=== PATIENT | male | born 1995 | race Two or more races ===

== ENCOUNTER 2017-05-05 13:44 | Outpatient (CLI) | payer MEDICAID ==
[2017-05-05 19:46] LABS: BASOPHILS # (AUTO) 0.1 10^3/uL (0.0-0.1); BASOPHILS % (AUTO) 1.2 %; EOSINOPHILS # (AUTO) 0.1 10^3/uL (0.0-0.7); EOSINOPHILS % (AUTO) 2.5 %; HCT - HEMATOCRIT 43.6 % (42.0-52.0); HGB - HEMOGLOBIN 14.7 g/dL (14.0-18.0); LYMPHOCYTES # (AUTO) 1.1 10^3/uL (1.5-3.5); LYMPHOCYTES % (AUTO) 24.7 %; MEAN CORPUSCULAR HEMOGLOBIN 29.5 pg (27.0-31.0); MEAN CORPUSCULAR HGB CONC 33.6 g/dL (32.0-36.0); MEAN CORPUSCULAR VOLUME 87.6 fL (80.0-94.0); MEAN PLATELET VOLUME 8.6 fL (7.4-11.4); MONOCYTES # (AUTO) 0.7 10^3/uL (0.0-1.0); MONOCYTES % (AUTO) 14.6 %; NEUTROPHILS # (AUTO) 2.6 10^3/uL (1.5-6.6); NUCLEATED RED BLOOD CELLS AUTO 0.1 /100WBC; RED BLOOD COUNT 4.98 10^6/uL (4.70-6.10); RED CELL DISTRIBUTION WIDTH 13.5 % (12.0-15.0); UNCORRECTED WHITE BLOOD COUNT 4.6 x10^3/uL; WHITE BLOOD COUNT 4.6 x10^3/uL (4.8-10.8)
[2017-05-05 20:19] LABS: ALBUMIN/GLOBULIN RATIO 1.7 (1.0-2.2); CALCIUM 9.4 mg/dL (8.5-10.3); CREATININE 0.8 mg/dL (0.6-1.2); POTASSIUM 3.8 mmol/L (3.5-5.0); TOTAL PROTEIN 6.8 g/dL (6.7-8.2)
== END 2017-05-05 13:45 ==
LOC: LAB.N 13:44
PROVIDERS: ATTEND Nurse Practitioner Gerontology
DX: Z13.9 Encounter for screening, unspecified (principal); F32.9 Major depressive disorder, single episode, unspecified
CPT/HCPCS: 36415; 80053; 84403; 85025

== ENCOUNTER 2017-10-22 10:02 | Outpatient (CLI) | payer MEDICAID ==
[2017-10-22 14:15] LABS: BASOPHILS % (AUTO) 0.9 %; EOSINOPHILS # (AUTO) 0.1 10^3/uL (0.0-0.7); EOSINOPHILS % (AUTO) 3.1 %; HCT - HEMATOCRIT 39.3 % (42.0-52.0); HGB - HEMOGLOBIN 13.8 g/dL (14.0-18.0); LYMPHOCYTES # (AUTO) 1.2 10^3/uL (1.5-3.5); LYMPHOCYTES % (AUTO) 24.4 %; MEAN CORPUSCULAR HEMOGLOBIN 30.2 pg (27.0-31.0); MEAN CORPUSCULAR HGB CONC 35.1 g/dL (32.0-36.0); MEAN PLATELET VOLUME 8.4 fL (7.4-11.4); MONOCYTES # (AUTO) 0.7 10^3/uL (0.0-1.0); MONOCYTES % (AUTO) 14.4 %; NEUTROPHILS # (AUTO) 2.7 10^3/uL (1.5-6.6); NEUTROPHILS % (AUTO) 57.2 %; RED BLOOD COUNT 4.57 10^6/uL (4.70-6.10); RED CELL DISTRIBUTION WIDTH 13.7 % (12.0-15.0); UNCORRECTED WHITE BLOOD COUNT 4.8 x10^3/uL; WHITE BLOOD COUNT 4.8 x10^3/uL (4.8-10.8)
== END 2017-10-22 10:03 | disposition home or self-care (01) ==
LOC: LAB.N 10:02
PROVIDERS: ATTEND Nurse Practitioner Gerontology
DX: K62.5 Hemorrhage of anus and rectum (principal)
CPT/HCPCS: 36415; 85025

== ENCOUNTER 2018-01-11 06:50 | Day surgery (SDC) | payer MEDICAID ==
[2018-01-11] MEDS ORDERED: PROPOFOL 200 MG/20 ML VIAL IVP ONE (06:51)
[2018-01-11] MEDS ORDERED: LACTATED RINGERS 1,000 ML IV ONE (07:32)
[2018-01-11 09:13] VITALS: BP 105/67
== END 2018-01-11 06:51 | disposition home or self-care (01) ==
LOC: SDS 06:50
PROVIDERS: ATTEND Surgery
PROC: 0DBP8ZX Excision of Rectum, Via Natural or Artificial Opening Endoscopic, Diagnostic (ICD-10-PCS; 2018-01-11)
PROC: 0DBK8ZX Excision of Ascending Colon, Via Natural or Artificial Opening Endoscopic, Diagnostic (ICD-10-PCS; principal; 2018-01-11 08:15)
DX: K62.5 Hemorrhage of anus and rectum (principal); K64.8 Other hemorrhoids; K52.89 Other specified noninfective gastroenteritis and colitis; F90.9 Attention-deficit hyperactivity disorder, unspecified type; F84.0 Autistic disorder
CPT/HCPCS: 45380; J7120

== ENCOUNTER 2018-04-21 16:03 | Inpatient (IN) | payer MEDICAID ==
--- NOTE | 2018-04-21 16:25 | ED Physician Documentation ---
History of Present Illness - Stated complaint Stated Complaint: MALE /RECTAL BLEEDING - Chief complaint Chief Complaint: General - History obtained from History obtained from: Patient - History of Present Illness Timing: Other (22-year-old gentleman with recent diagnosis of ulcerative colitis by colonoscopy. He was on what sounds like a mesalamine type drug and it was supposed to be 4 times a day but he really only takes it once a day. For the last 2-3 weeks he has had intermittently heavy rectal bleeding without significant abdominal pain or nausea. He is starting to feel weak and dizzy.) Review of Systems Ten Systems: 10 systems reviewed and negative Constitutional: denies: Fever, Chills, Fatigue GI: reports: Bloody / black stool. denies: Abdominal Pain, Nausea, Vomiting, Diarrhea : denies: Dysuria PD PAST MEDICAL HISTORY - Past Medical History Cardiovascular: None Endocrine/Autoimmune: None Psych: Other - Past Surgical History General: Other - Present Medications Home Medications: Ambulatory Orders Medication Instructions Recorded Confirmed Amphetamine Sulfate [Evekeo] 30 mg PO DAILY 01/11/18 04/21/18 Clonidine HCl [Catapres] 0.2 mg PO DAILY 01/11/18 04/21/18 Fluoxetine HCl [Prozac] 20 mg PO DAILY 01/11/18 04/21/18 risperiDONE [Risperdal] 1 mg PO DAILY 01/11/18 04/21/18 Mesalamine [Apriso] 0.375 gm PO DAILY 04/21/18 04/21/18 - Allergies Allergies/Adverse Reactions: Allergies Allergy/AdvReac Type Severity Reaction Status Date / Time No Known Drug Allergies Allergy Verified 01/11/18 07:33 - Family History Family history: reports: Non contributory PD ED PE NORMAL - Vitals Vital signs reviewed: Yes - General General: Alert and oriented X 3, No acute distress - HEENT HEENT: PERRL, EOMI - Neck Neck: Supple, no meningeal sign, No bony TTP - Cardiac Cardiac: No murmur, Other (Tachycardic) - Respiratory Respiratory: No respiratory distress, Clear bilaterally - Abdomen Abdomen: Soft, Non tender - Rectal Rectal: Deferred (But he had just had a bowel movements and in the there is brown stool mixed with a significant amount of blood.) - Back Back: No CVA TTP, No spinal TTP - Derm Derm: Normal color, Warm and dry - Extremities Extremities: No edema, No calf tenderness / cord - Neuro Neuro: Alert and oriented X 3, Normal speech Results - Vitals Vitals: Vital Signs - 24 hr 04/21/18 16:05 Temperature 36.7 C Heart Rate 118 H Respiratory 16 Rate Blood Pressure 103/75 O2 Saturation 96 Oxygen O2 Source Room air - Labs Labs: Laboratory Tests 04/21/18 04/21/18 16:30 16:30 WBC 10.5 RBC 3.33 L Hgb 9.6 L Hct 28.7 L MCV 86.2 MCH 28.8 MCHC 33.4 RDW 14.3 Plt Count 387 MPV 6.9 L Neut # (Auto) 5.4 Lymph # (Auto) 1.4 L [place] # (Auto) 2.1 H Eos # (Auto) 1.4 H Baso # (Auto) 0.1 Absolute Nucleated RBC 0.02 Nucleated RBC % 0.1 Sodium 134 L Potassium 3.8 Chloride 100 L Carbon Dioxide 29 Anion Gap 5.0 L BUN 8 Creatinine 1.0 Estimated GFR (MDRD) 93 Glucose 91 Calcium 8.3 L Total Bilirubin 0.6 AST 27 ALT 22 Alkaline Phosphatase 49 Total Protein 5.8 L Albumin 2.4 L Globulin 3.4 Albumin/Globulin Ratio 0.7 L Lipase 20 L PD MEDICAL DECISION MAKING - ED course ED course: As a young man with known ulcerative colitis who has significant rectal bleeding and hemoglobin of 9, it was high 13 a few months ago. Call to the surgeon for likely observation at 5 PM. - Sepsis Event Vital Signs: Vital Signs - 24 hr 04/21/18 16:05 Temperature 36.7 C Heart Rate 118 H Respiratory 16 Rate Blood Pressure 103/75 O2 Saturation 96 Oxygen O2 Source Room air Departure - Departure Disposition: ED Place in Observation Clinical Impression: Lower GI bleed Ulcerative colitis Qualifiers: Ulcerative colitis location: unspecified ulcerative colitis location Digestive disease complication type: with rectal bleeding Qualified Code(s): K51.911 - Ulcerative colitis, unspecified with rectal bleeding Condition: Stable
[2018-04-21 16:49] LABS: ALBUMIN 2.4 g/dL (3.2-5.5); ALBUMIN/GLOBULIN RATIO 0.7 (1.0-2.2); BILIRUBIN,TOTAL 0.6 mg/dL (0.2-1.0); CALCIUM 8.3 mg/dL (8.5-10.3); TOTAL PROTEIN 5.8 g/dL (6.7-8.2)
[2018-04-21 16:52] LABS: BASOPHILS # (AUTO) 0.1 10^3/uL (0.0-0.1); BASOPHILS % (AUTO) 0.9 %; EOSINOPHILS # (AUTO) 1.4 10^3/uL (0.0-0.7); EOSINOPHILS % (AUTO) 13.7 %; HGB - HEMOGLOBIN 9.6 g/dL (14.0-18.0); LYMPHOCYTES # (AUTO) 1.4 10^3/uL (1.5-3.5); LYMPHOCYTES % (AUTO) 13.7 %; MEAN CORPUSCULAR HEMOGLOBIN 28.8 pg (27.0-31.0); MEAN CORPUSCULAR HGB CONC 33.4 g/dL (32.0-36.0); MEAN CORPUSCULAR VOLUME 86.2 fL (80.0-94.0); MEAN PLATELET VOLUME 6.9 fL (7.4-11.4); MONOCYTES # (AUTO) 2.1 10^3/uL (0.0-1.0); MONOCYTES % (AUTO) 20.1 %; NEUTROPHILS # (AUTO) 5.4 10^3/uL (1.5-6.6); NEUTROPHILS % (AUTO) 51.6 %; PLT - PLATELET COUNT 387 10^3/uL (130-450); RED BLOOD COUNT 3.33 10^6/uL (4.70-6.10); RED CELL DISTRIBUTION WIDTH 14.3 % (12.0-15.0); WHITE BLOOD COUNT 10.5 x10^3/uL (4.8-10.8)
[2018-04-21] MEDS ORDERED: SODIUM CHLORIDE 0.9% 1,000 ML IV ONE ×2 (17:05→17:06)
[2018-04-21] MEDS ORDERED: HYDROmorphone 0.5 MG/0.5 ML SYRINGE IVP PRN (17:41)
[2018-04-21] MEDS ORDERED: ONDANSETRON 4 MG/2 ML VIAL IVP PRN (17:44)
[2018-04-21] MEDS ORDERED: DEXTROAMPHETAMINE PO SCH (17:45)
[2018-04-21] MEDS ORDERED: AMPHETAMINE PO SCH (17:45)
[2018-04-21] MEDS: SODIUM CHLORIDE FLUSH 0.9% 10 ML SYRINGE IVP PRN ×2 (19:18→20:09)
[2018-04-21] MEDS: HYDROCORTISONE SUCCINATE 100 MG/2 ML VIAL IVP SCH (20:06)
[2018-04-21] MEDS: SODIUM CHLORIDE 0.9% 1,000 ML IV SCH (20:09)
[2018-04-21] MEDS ORDERED: cloNIDine 0.1 MG TABLET PO SCH ×2 (21:00→21:11)
[2018-04-21] MEDS: risperiDONE 1 MG TABLET PO SCH (21:15)
[2018-04-22] MEDS: SODIUM CHLORIDE FLUSH 0.9% 10 ML SYRINGE IVP SCH ×3 (01:35→17:52)
[2018-04-22] MEDS: HYDROCORTISONE SUCCINATE 100 MG/2 ML VIAL IVP SCH ×3 (03:26→17:52)
[2018-04-22] MEDS: SODIUM CHLORIDE FLUSH 0.9% 10 ML SYRINGE IVP PRN (03:27)
[2018-04-22] MEDS: SODIUM CHLORIDE 0.9% 1,000 ML IV SCH ×3 (03:27→20:48)
[2018-04-22 05:37] LABS: BASOPHILS # (AUTO) 0.1 10^3/uL (0.0-0.1); BASOPHILS % (AUTO) 0.7 %; EOSINOPHILS # (AUTO) 0.2 10^3/uL (0.0-0.7); EOSINOPHILS % (AUTO) 2.3 %; HGB - HEMOGLOBIN 8.2 g/dL (14.0-18.0); LYMPHOCYTES # (AUTO) 0.8 10^3/uL (1.5-3.5); LYMPHOCYTES % (AUTO) 9.4 %; MEAN CORPUSCULAR HEMOGLOBIN 28.6 pg (27.0-31.0); MEAN CORPUSCULAR VOLUME 86.7 fL (80.0-94.0); MEAN PLATELET VOLUME 6.7 fL (7.4-11.4); MONOCYTES # (AUTO) 1.1 10^3/uL (0.0-1.0); MONOCYTES % (AUTO) 12.3 %; NEUTROPHILS # (AUTO) 6.7 10^3/uL (1.5-6.6); NEUTROPHILS % (AUTO) 75.3 %; PLT - PLATELET COUNT 327 10^3/uL (130-450); RED BLOOD COUNT 2.87 10^6/uL (4.70-6.10); RED CELL DISTRIBUTION WIDTH 14.4 % (12.0-15.0); WHITE BLOOD COUNT 8.9 x10^3/uL (4.8-10.8)
--- NOTE | 2018-04-22 08:51 | PROVIDER PROGRESS NOTE ---
Subjective - General Admit Date: 04/21/18 - Review of Systems Gastrointestinal: positive: Hematochezia, Other (no c/o abdominal pain.) Objective - Patient Data Vital Signs: Vital Signs x48h Temp Pulse Resp BP Pulse Ox 04/22/18 08:13 37.3 C 96 18 112/60 97 04/22/18 05:00 36.9 C 89 20 108/49 L 96 Weight: Weight 04/20/18 04/21/18 04/22/18 23:59 23:59 23:59 Weight (kg) 97.5 kg Intake & Output: Intake and Output Totals x24h 04/20/18 04/21/18 04/22/18 23:59 23:59 23:59 Intake Total 1810 200 Output Total 1 Balance 1810 199 - Lab Results Lab Results: 04/22/18 05:15 04/21/18 16:30 Other Lab Results: Lab Results x24hrs 04/22/18 Range/Units 05:15 WBC 8.9 (4.8-10.8) x10^3/uL RBC 2.87 L (4.70-6.10) 10^6/uL Hgb 8.2 L (14.0-18.0) g/dL Hct 24.9 L (42.0-52.0) % MCV 86.7 (80.0-94.0) fL MCH 28.6 (27.0-31.0) pg MCHC 33.0 (32.0-36.0) g/dL RDW 14.4 (12.0-15.0) % Plt Count 327 (130-450) 10^3/uL MPV 6.7 L (7.4-11.4) fL Neut # (Auto) 6.7 H (1.5-6.6) 10^3/uL Lymph # (Auto) 0.8 L (1.5-3.5) 10^3/uL [place] # (Auto) 1.1 H (0.0-1.0) 10^3/uL Eos # (Auto) 0.2 (0.0-0.7) 10^3/uL Baso # (Auto) 0.1 (0.0-0.1) 10^3/uL Absolute Nucleated RBC 0.01 x10^3/uL Nucleated RBC % 0.1 /100WBC - Current Medications Current Medications: Current Medications Generic Name Dose Route Start Last Admin Trade Name Freq PRN Reason Stop Dose Admin Hydrocortisone Sodium Succinate 100 mg 04/21/18 18:00 04/22/18 03:26 Solu-Cortef IVP 100 mg Q8H DEBRA Administration Sodium Chloride 1,000 mls @ 125 mls/hr 04/21/18 18:00 04/22/18 03:27 Normal Saline 0.9% IV 125 mls/hr .Q8H DEBRA Administration Risperidone 1 mg 04/21/18 21:00 04/21/18 21:15 Risperdal PO 1 mg QPM DEBRA Administration Sodium Chloride 10 ml 04/22/18 01:00 04/22/18 01:35 Normal Saline Flush 0.9% IVP Not Given 0100,0900,1700 DEBRA Sodium Chloride 10 ml 04/21/18 17:41 04/22/18 03:27 Normal Saline Flush 0.9% IVP 10 ml PRN PRN Administration NEEDED PER PROVIDER ORDERS - Physical Exam Abdomen: positive: Non-tender Impression/Plan - Problem List Problem List: Inflammatory bowel disease flareup. Currently on IV steroids. If improves overnight will d/c home on prednisone. Anemia secondary to ibs. HGB 8. asymptomatic. Start iron
[2018-04-22] MEDS: FERROUS SULFATE 325 MG TABLET PO SCH (09:35)
[2018-04-22] MEDS: FLUoxetine 10 MG CAPSULE PO SCH (09:36)
--- NOTE | 2018-04-22 11:28 | HISTORY & PHYSICAL EXAMINATION ---
DATE OF SERVICE: 04/21/2018 Physician: Luis Manuel Winters MD REASON FOR ADMISSION: Moderate inflammatory bowel disease. HISTORY OF PRESENT ILLNESS: The patient is a 22-year-old male who was diagnosed with inflammatory disease or inflammatory bowel disease a little over 2 months ago by colonoscopy. He had been placed on mesalamine, but his dose has been reduced. He now has progressive bloody diarrhea and abdominal pain for the last several weeks. He was seen in the emergency room and found to be anemic and dehydrated, having a hemoglobin of 10 and tachycardic at 120. PAST MEDICAL HISTORY 1. Inflammatory bowel disease. 2. ADHD. 3. Autism. 4. Depression. PAST SURGICAL HISTORY: Hernia repair. FAMILY HISTORY: Possible relative with celiac disease. MEDICATIONS 1. Risperdal. 2. Clonidine 3. Fluoxetine. 4. Adderall. HABITS: The patient denies any smoking, alcohol, or drug use. SOCIAL HISTORY: Patient lives with family. REVIEW OF SYSTEMS GASTROINTESTINAL: Abdominal pain and bloody diarrhea. CARDIOVASCULAR: Tachycardia. A 12-point review of systems was obtained, with pertinent positives discussed and all others being negative. PHYSICAL EXAMINATION VITAL SIGNS: Temperature is 36.7, heart rate 118, blood pressure 103/75. GENERAL: The patient is lying in bed. He does not appear to be in any distress at the current time just complaining of mild abdominal discomfort. EYES: Nonicteric. NECK: No lymphadenopathy. HEART: Mildly tachycardic. LUNGS: Clear. BACK: Nontender. ABDOMEN: Soft. Minimal tenderness. No hernias. No peritoneal signs. EXTREMITIES: No edema or cyanosis. NEUROLOGIC: The patient appears to be neurologically intact without any deficit. PSYCHOLOGICAL: The patient is coherent, cooperative, and appears to answer questions fully. DIAGNOSTIC DATA: Hemoglobin of 10, down from 14 in the past. Creatinine 0.1, sodium 134. ASSESSMENT 1. History of inflammatory bowel disease with the patient appearing to go into remission on mesalamine. His dose had been reduced with return of his symptoms. I recommend the patient be started on steroids, as he has moderate inflammatory bowel disease at the current time. I have discussed the risks and possible complications of steroids. He would be treated for several days on IV hydrocortisone and then switched to oral prednisone and mesalamine. 2. Attention deficit hyperactivity disorder, currently on medications. 3. Insomnia, on clonidine. PLAN 1. Admit. 2. Clear liquids. 3. Hydrocortisone 100 mg q.8 hours. 4. Follow hemoglobin and hematocrit. 5. IV hydration. TD: 04/22/2018 01:26
[2018-04-22] MEDS ORDERED: AMPHETAMINE PO SCH (16:00)
[2018-04-22] MEDS ORDERED: DEXTROAMPHETAMINE PO SCH (16:00)
[2018-04-22] MEDS: risperiDONE 1 MG TABLET PO SCH (22:19)
[2018-04-23] MEDS: HYDROCORTISONE SUCCINATE 100 MG/2 ML VIAL IVP SCH ×2 (01:38→10:40)
[2018-04-23] MEDS: SODIUM CHLORIDE FLUSH 0.9% 10 ML SYRINGE IVP SCH ×2 (01:42→08:50)
[2018-04-23] MEDS: SODIUM CHLORIDE 0.9% 1,000 ML IV SCH (04:35)
[2018-04-23 05:55] LABS: BASOPHILS % (AUTO) 0.4 %; EOSINOPHILS # (AUTO) 0.1 10^3/uL (0.0-0.7); EOSINOPHILS % (AUTO) 1.6 %; HGB - HEMOGLOBIN 8.1 g/dL (14.0-18.0); LYMPHOCYTES # (AUTO) 0.6 10^3/uL (1.5-3.5); LYMPHOCYTES % (AUTO) 6.7 %; MEAN CORPUSCULAR HEMOGLOBIN 28.3 pg (27.0-31.0); MEAN CORPUSCULAR HGB CONC 32.9 g/dL (32.0-36.0); MEAN CORPUSCULAR VOLUME 86.1 fL (80.0-94.0); MEAN PLATELET VOLUME 6.9 fL (7.4-11.4); MONOCYTES # (AUTO) 1.5 10^3/uL (0.0-1.0); MONOCYTES % (AUTO) 16.7 %; NEUTROPHILS # (AUTO) 6.8 10^3/uL (1.5-6.6); NEUTROPHILS % (AUTO) 74.6 %; PLT - PLATELET COUNT 366 10^3/uL (130-450); RED BLOOD COUNT 2.84 10^6/uL (4.70-6.10); RED CELL DISTRIBUTION WIDTH 14.6 % (12.0-15.0); WHITE BLOOD COUNT 9.1 x10^3/uL (4.8-10.8)
[2018-04-23 07:48] VITALS: BP 112/68
[2018-04-23] MEDS: FERROUS SULFATE 325 MG TABLET PO SCH (08:50)
[2018-04-23] MEDS: FLUoxetine 10 MG CAPSULE PO SCH (08:50)
[2018-04-23] MEDS ORDERED: DEXTROAMPHETAMINE PO SCH (10:00)
[2018-04-23] MEDS ORDERED: AMPHETAMINE PO SCH (10:00)
--- NOTE | 2018-04-23 10:56 | Discharge Plan ---
Discharge Plan Disposition: Home, Self Care Prescriptions: predniSONE [Prednisone] 40 mg PO DAILY #35 tablet Diet: Regular Activity Restrictions: No Restrictions Shower Restrictions: No Driving Restrictions: No Weight Bearing: Full Weight No Smoking: If you smoke, Please STOP! Call for help. Follow-up with: Jerri Villarreal ARNP [Primary Care Provider] - 2 Weeks Jose Alfredo Cohen MD [Provider Admit Priv/Credential] - 05/13/18
[2018-04-23] MEDS ORDERED: MESALAMINE 400 MG CAPSULE PO SCH (11:00)
--- NOTE | 2018-04-23 16:36 | DISCHARGE SUMMARY ---
Physician: Luis Manuel Winters MD DATE OF ADMISSION: 04/21/2018 DATE OF DISCHARGE: 04/23/2018 REASON FOR ADMISSION: Inflammatory bowel flareup. HISTORY OF PRESENT ILLNESS: Patient is a 22-year-old male who was diagnosed with inflammatory bowel 3 months prior. Now presents with a month history of continued bloody diarrhea after reducing the dose of mesalamine. PRINCIPAL DIAGNOSIS: Inflammatory bowel flareup. OTHER MEDICAL PROBLEMS 1. ADHD. 2. Autism. 3. Depression. HOSPITAL COURSE: Patient was admitted to the hospital. He was diagnosed with moderate to severe inflammatory bowel disease. He was having bloody diarrhea. His hemoglobin went down to 8 after hydration. He was started on IV steroids, hydrocortisone 100 mg q.8 hours. Within 24 hours, his bloody diarrhea had almost resolved, and 48 hours later was not having any more blood in the stool. However, he is still having some loose stools. He was placed on a regular diet, which he tolerated. He did not have any abdominal symptoms. He was then discharged home in stable condition. DISCHARGE PROGRAM 1. Patient will be on a prednisone taper 40 mg daily for a week, tapering down to 20 mg. 2. He will restart his mesalamine in a couple weeks and will need to be on maintenance therapy. 3. He is to resume his prehospitalization medications. 4. He will follow up with his primary care doctor in [address] Cohen in 3 weeks. 5. He is to come in if he should have any other issues occurring. TD: 04/23/2018 12:03 FROY
== END 2018-04-23 11:22 | disposition home or self-care (01) | DRG 386 ==
LOC: ED 16:03 → MS2 17:41 → OBSVTOIN 04-22 08:53
PROVIDERS: ADMIT Surgery; ATTEND Surgery
DX: K51.911 Ulcerative colitis, unspecified with rectal bleeding (principal); F84.0 Autistic disorder; F90.9 Attention-deficit hyperactivity disorder, unspecified type; F32.9 Major depressive disorder, single episode, unspecified; G47.00 Insomnia, unspecified; D64.9 Anemia, unspecified
CPT/HCPCS: 36415; 80053; 83690; 85025; 86850; 86900; 86901; 96360; 96361; 96374; 96376; 99283; 99284

== ENCOUNTER 2018-05-06 11:24 | Emergency (ER) | payer MEDICAID ==
[2018-05-06] MEDS ORDERED: SODIUM CHLORIDE 0.9% 1,000 ML IV ONE ×3 (11:59→12:44)
[2018-05-06 12:04] LABS: MEAN CORPUSCULAR HEMOGLOBIN 25.3 pg (27.0-31.0); MEAN CORPUSCULAR HGB CONC 32.2 g/dL (32.0-36.0); MEAN CORPUSCULAR VOLUME 78.7 fL (80.0-94.0); MEAN PLATELET VOLUME 6.6 fL (7.4-11.4); RED BLOOD COUNT 2.61 10^6/uL (4.70-6.10); RED CELL DISTRIBUTION WIDTH 17.3 % (12.0-15.0); WHITE BLOOD COUNT 10.9 x10^3/uL (4.8-10.8)
[2018-05-06 12:08] LABS: INR 1.2 (0.8-1.2)
[2018-05-06 12:08] LABS: HGB - HEMOGLOBIN 6.6 g/dL (14.0-18.0)
[2018-05-06 12:10] LABS: ALBUMIN 2.1 g/dL (3.2-5.5); ALBUMIN/GLOBULIN RATIO 0.7 (1.0-2.2); BILIRUBIN,TOTAL 0.5 mg/dL (0.2-1.0); CALCIUM 7.8 mg/dL (8.5-10.3); CREATININE 0.9 mg/dL (0.6-1.2); TOTAL PROTEIN 5.3 g/dL (6.7-8.2)
[2018-05-06] MEDS ORDERED: methylPREDNISolone SUCCINATE 125 MG/2 ML VIAL IVP STA (12:35)
--- NOTE | 2018-05-06 12:50 | ED Physician Documentation ---
PD HPI GI BLEED - Stated complaint Stated Complaint: MALE - Chief complaint Chief Complaint: Abd Pain - History obtained from History obtained from: Patient - History of Present Illness Timing - onset: How many weeks ago (several weeks) Timing - duration: Weeks Timing - details: Gradual onset Pain level max: 3 Pain level now: 2 Associated symptoms: BRBPR. No: Constipation Contributing factors: Other (ulcerative colitis) Improved by: Other (nothing) Worsened by: Other (nothing) Similar symptoms before: Diagnosis (ulcerative colitis) Recently seen: Not recently seen - Additional information Additional information: Patient is a 22-year-old male who has been diagnosed with ulcerative colitis after colonoscopy. Has had rectal bleeding intermittently for several weeks now and was recently admitted here. He has continued to feel very weak and tired and now feels very lightheaded when he stands up like he is going to pass out. Has never had a blood transfusion before. Does have an appointment with [facility] but not until June of this year. Review of Systems Ten Systems: 10 systems reviewed and negative Constitutional: denies: Fever, Chills Ears: denies: Ear pain Nose: denies: Rhinorrhea / runny nose, Congestion Throat: denies: Sore throat Cardiac: denies: Chest pain / pressure Respiratory: denies: Cough GI: denies: Nausea, Vomiting, Diarrhea Skin: denies: Rash Musculoskeletal: denies: Neck pain, Back pain Neurologic: denies: Headache PD PAST MEDICAL HISTORY - Past Medical History Cardiovascular: None Endocrine/Autoimmune: None GI: Ulcerative colitis Psych: Other - Past Surgical History Past Surgical History: Yes General: Other - Present Medications Home Medications: Ambulatory Orders Medication Instructions Recorded Confirmed Clonidine HCl [Catapres] 0.2 mg PO QPM 01/11/18 04/21/18 Fluoxetine HCl [Prozac] 20 mg PO DAILY 01/11/18 04/21/18 risperiDONE [Risperdal] 1 mg PO QPM 01/11/18 04/21/18 Dextroamphetamine/Amphetamine 20 mg PO .DAILY AT 4PM 04/21/18 04/21/18 [Dextroamp-Amphet ER 20 mg Cap] Dextroamphetamine/Amphetamine 30 mg PO .DAILY AT 10AM 04/21/18 04/21/18 [Dextroamp-Amphet ER 30 mg Cap] Mesalamine [Apriso] 1.5 gm PO DAILY 04/21/18 04/21/18 predniSONE [Prednisone] 40 mg PO DAILY #35 tablet 04/23/18 - Allergies Allergies/Adverse Reactions: Allergies Allergy/AdvReac Type Severity Reaction Status Date / Time No Known Drug Allergies Allergy Verified 05/06/18 11:36 - Social History Does the pt smoke?: No Smoking Status: Never smoker Does the pt drink ETOH?: No Does the pt have substance abuse?: No - Immunizations Immunizations are current?: Yes - POLST Patient has POLST: No PD ED PE NORMAL - Vitals Vital signs reviewed: Yes - General General: Alert and oriented X 3, No acute distress - HEENT HEENT: Moist mucous membranes - Neck Neck: Supple, no meningeal sign - Cardiac Cardiac: RRR, Strong equal pulses - Respiratory Respiratory: No respiratory distress, Clear bilaterally - Abdomen Abdomen: Soft, Non tender, Non distended - Rectal Rectal: Pt declined - Derm Derm: Warm and dry - Extremities Extremities: No edema, No calf tenderness / cord - Neuro Neuro: Alert and oriented X 3 - Psych Psych: Normal mood, Normal affect Results - Vitals Vitals: Vital Signs - 24 hr 05/06/18 05/06/18 05/06/18 11:34 12:13 13:45 Temperature 36.8 C 36.6 C Heart Rate 129 H 105 H 104 H Respiratory 16 15 16 Rate Blood Pressure 103/63 110/58 L 102/50 L O2 Saturation 97 97 100 05/06/18 05/06/18 05/06/18 14:02 14:10 14:24 Temperature 36.6 C 36.6 C Heart Rate 99 97 99 Respiratory 16 16 15 Rate Blood Pressure 106/53 L 106/53 L 108/59 L O2 Saturation 100 05/06/18 05/06/18 05/06/18 14:33 15:00 15:27 Temperature 36.3 C L 36.5 C 36.5 C Heart Rate 96 98 106 H Respiratory 15 15 15 Rate Blood Pressure 111/60 107/55 L 112/73 O2 Saturation 05/06/18 05/06/18 05/06/18 16:11 16:20 17:19 Temperature 36.2 C L 36.3 C L 36.4 C L Heart Rate 94 88 94 Respiratory 15 15 15 Rate Blood Pressure 112/80 109/76 106/74 O2 Saturation 05/06/18 18:01 Temperature Heart Rate 118 H Respiratory 16 Rate Blood Pressure 114/71 O2 Saturation 100 Oxygen O2 Source Room air - Labs Labs: Laboratory Tests 05/06/18 05/06/18 05/06/18 11:37 11:37 11:52 WBC 10.9 H RBC 2.61 L Hgb 6.6 L* Hct 20.6 L MCV 78.7 L MCH 25.3 L MCHC 32.2 RDW 17.3 H Plt Count 472 H MPV 6.6 L PT INR APTT Sodium 132 L Potassium 3.8 Chloride 99 L Carbon Dioxide 28 Anion Gap 5.0 L BUN 13 Creatinine 0.9 Estimated GFR (MDRD) 105 Glucose 111 H Calcium 7.8 L Total Bilirubin 0.5 AST 15 ALT 14 Alkaline Phosphatase 43 Total Protein 5.3 L Albumin 2.1 L Globulin 3.2 Albumin/Globulin Ratio 0.7 L Lipase 18 L Blood Type O POSITIVE Antibody Screen NEGATIVE Crossmatch IS Only 05/06/18 05/06/18 11:52 11:52 WBC RBC Hgb Hct MCV MCH MCHC RDW Plt Count MPV PT 13.0 H INR 1.2 APTT 25.9 Sodium Potassium Chloride Carbon Dioxide Anion Gap BUN Creatinine Estimated GFR (MDRD) Glucose Calcium Total Bilirubin AST ALT Alkaline Phosphatase Total Protein Albumin Globulin Albumin/Globulin Ratio Lipase Blood Type Cancelled Antibody Screen Cancelled Crossmatch IS Only See Detail PD MEDICAL DECISION MAKING - ED course Complexity details: reviewed results, re-evaluated patient, considered differential, d/w patient, d/w workforce consultant ED course: She is a 22-year-old male with a history of ulcerative colitis who presents to the emergency department continued rectal bleeding and continued decreasing hemoglobin over the past several weeks. Now feels very weak and dizzy when he stands up. Blood transfusion started. IV fluids given. Discussed the case with Dr. Winters, surgery here who recommends transfer to somewhere with GI and I think this is reasonable as he has never seen GI. [facility] had no beds, [facility] [address] Dr[address] [facility] COBRA forms completed. Patient will be transferred. This document was made in part using voice recognition software. While efforts are made to proofread this document, sound alike and grammatical errors may occur. - Sepsis Event Vital Signs: Vital Signs - 24 hr 05/06/18 05/06/18 05/06/18 11:34 12:13 13:45 Temperature 36.8 C 36.6 C Heart Rate 129 H 105 H 104 H Respiratory 16 15 16 Rate Blood Pressure 103/63 110/58 L 102/50 L O2 Saturation 97 97 100 05/06/18 05/06/18 05/06/18 14:02 14:10 14:24 Temperature 36.6 C 36.6 C Heart Rate 99 97 99 Respiratory 16 16 15 Rate Blood Pressure 106/53 L 106/53 L 108/59 L O2 Saturation 100 05/06/18 05/06/18 05/06/18 14:33 15:00 15:27 Temperature 36.3 C L 36.5 C 36.5 C Heart Rate 96 98 106 H Respiratory 15 15 15 Rate Blood Pressure 111/60 107/55 L 112/73 O2 Saturation 05/06/18 05/06/18 05/06/18 16:11 16:20 17:19 Temperature 36.2 C L 36.3 C L 36.4 C L Heart Rate 94 88 94 Respiratory 15 15 15 Rate Blood Pressure 112/80 109/76 106/74 O2 Saturation 05/06/18 18:01 Temperature Heart Rate 118 H Respiratory 16 Rate Blood Pressure 114/71 O2 Saturation 100 Oxygen O2 Source Room air Departure - Departure Disposition: 02 Transfer Acute Care Hosp Clinical Impression: Symptomatic anemia, Lower GI bleed Ulcerative colitis Qualifiers: Ulcerative colitis location: ulcerative pancolitis Digestive disease complication type: with rectal bleeding Qualified Code(s): K51.011 - Ulcerative (chronic) pancolitis with rectal bleeding Condition: Stable Discharge Date/Time: 05/06/18 18:23
[2018-05-06 18:02] VITALS: BP 114/71
== END 2018-05-06 18:23 | disposition short-term general hospital (02) ==
LOC: ED 11:24
DX: D64.9 Anemia, unspecified (principal); K51.011 Ulcerative (chronic) pancolitis with rectal bleeding
CPT/HCPCS: 36415; 36430; 80053; 83690; 85027; 85610; 85730; 86850; 86900; 86901; 86920; 96361; 96374; 99284; 99285; P9016

== ENCOUNTER 2018-05-06 18:10 | Outpatient (CLI) | payer MEDICAID | END 2018-05-06 18:11 | disposition short-term general hospital (02) | LOC: EMS 18:10 | PROVIDERS: ATTEND Surgery | DX: K92.2 Gastrointestinal hemorrhage, unspecified (principal); D64.9 Anemia, unspecified | CPT/HCPCS: A0425; A0426 ==

== ENCOUNTER 2018-06-07 15:20 | Emergency (ER) | payer MEDICAID ==
[2018-06-07 16:13] LABS: ALBUMIN 2.6 g/dL (3.2-5.5); ALBUMIN/GLOBULIN RATIO 0.8 (1.0-2.2); BILIRUBIN,TOTAL 0.8 mg/dL (0.2-1.0); CALCIUM 8.2 mg/dL (8.5-10.3); CREATININE 0.9 mg/dL (0.6-1.2); PT - PROTHROMBIN TIME 11.5 secs (9.9-12.6); TOTAL PROTEIN 5.9 g/dL (6.7-8.2)
[2018-06-07 16:16] LABS: HGB - HEMOGLOBIN 7.8 g/dL (14.0-18.0); MEAN CORPUSCULAR HEMOGLOBIN 23.6 pg (27.0-31.0); MEAN CORPUSCULAR VOLUME 76.1 fL (80.0-94.0); MEAN PLATELET VOLUME 6.8 fL (7.4-11.4); RED BLOOD COUNT 3.31 10^6/uL (4.70-6.10); RED CELL DISTRIBUTION WIDTH 24.2 % (12.0-15.0)
[2018-06-07] MEDS ORDERED: SODIUM CHLORIDE 0.9% 1,000 ML IV ONE (16:52)
--- NOTE | 2018-06-07 17:00 | ED Physician Documentation ---
History of Present Illness - Stated complaint Stated Complaint: SENT BY - Chief complaint Chief Complaint: General - Additonal information Additional information: hx from pt and EMRs 22 male ulcerative colitis was admitted to [facility] 04/22- for bloody stools and improved with IV steroids and was dced then returned 05/06 and had a HGB of 6.6 and [facility]s and EGD and colonoscopy which showed a large mass that was not malignant / was due to UC, he was transfused, was dx with c diff which was believed to have triggered a UC flare and he was dced with a hgb of 8.6, dc on on vano 125 daily for 2 more weeks and mesalamine and prednisone he started dec steroids several days ago and finished his once daily vanco today having inc blood in BMS he followed up with PMD today and was weak and tied and his hgb was 7.7 so she sent him back to the ED at [facility] Review of Systems Constitutional: denies: Fever, Chills Cardiac: denies: Chest pain / pressure Respiratory: denies: Dyspnea GI: reports: Diarrhea, Bloody / black stool. denies: Abdominal Pain PD PAST MEDICAL HISTORY - Past Medical History Past Medical History: Yes Cardiovascular: None Respiratory: None Endocrine/Autoimmune: None GI: Ulcerative colitis Psych: ADD/ADHD, Other Derm: None - Past Surgical History Past Surgical History: Yes General: Other - Present Medications Home Medications: Ambulatory Orders Medication Instructions Recorded Confirmed Clonidine HCl [Catapres] 0.2 mg PO QPM 01/11/18 04/21/18 Fluoxetine HCl [Prozac] 20 mg PO DAILY 01/11/18 04/21/18 risperiDONE [Risperdal] 1 mg PO QPM 01/11/18 04/21/18 Dextroamphetamine/Amphetamine 20 mg PO .DAILY AT 4PM 04/21/18 04/21/18 [Dextroamp-Amphet ER 20 mg Cap] Dextroamphetamine/Amphetamine 30 mg PO .DAILY AT 10AM 04/21/18 04/21/18 [Dextroamp-Amphet ER 30 mg Cap] Mesalamine [Pentasa] 250 mg PO 06/07/18 - Allergies Allergies/Adverse Reactions: Allergies Allergy/AdvReac Type Severity Reaction Status Date / Time No Known Drug Allergies Allergy Verified 06/07/18 15:26 - Social History Does the pt smoke?: No Smoking Status: Never smoker Does the pt drink ETOH?: No Does the pt have substance abuse?: No - Immunizations Immunizations are current?: Yes - POLST Patient has POLST: No PD ED PE NORMAL - Vitals Vital signs reviewed: Yes - Neck Neck: Supple, no meningeal sign - Cardiac Cardiac: RRR - Respiratory Respiratory: No respiratory distress, Clear bilaterally - Abdomen Abdomen: Non tender - Derm Derm: Normal color - Neuro Neuro: Alert and oriented X 3 Results - Vitals Vitals: Vital Signs - 24 hr 06/07/18 06/07/18 06/07/18 15:23 16:29 18:42 Temperature 36.6 C 37.0 C 36.4 C L Heart Rate 98 94 71 Respiratory 16 16 16 Rate Blood Pressure 114/70 127/83 H 127/66 O2 Saturation 99 99 06/07/18 19:01 Temperature 36.7 C Heart Rate 79 Respiratory 16 Rate Blood Pressure 120/66 O2 Saturation Oxygen O2 Source Room air - Labs Labs: Laboratory Tests 06/07/18 06/07/18 06/07/18 15:45 15:45 15:45 WBC 9.0 RBC 3.31 L Hgb 7.8 L Hct 25.2 L MCV 76.1 L MCH 23.6 L MCHC 31.0 L RDW 24.2 H Plt Count 337 MPV 6.8 L PT 11.5 INR 1.0 APTT 28.0 Sodium Potassium Chloride Carbon Dioxide Anion Gap BUN Creatinine Estimated GFR (MDRD) Glucose Calcium Total Bilirubin AST ALT Alkaline Phosphatase Total Protein Albumin Globulin Albumin/Globulin Ratio Lipase Blood Type O POSITIVE Antibody Screen NEGATIVE Crossmatch IS Only 06/07/18 06/07/18 15:45 15:45 WBC RBC Hgb Hct MCV MCH MCHC RDW Plt Count MPV PT INR APTT Sodium 135 Potassium 3.9 Chloride 102 Carbon Dioxide 30 Anion Gap 3.0 L BUN 7 Creatinine 0.9 Estimated GFR (MDRD) 105 Glucose 88 Calcium 8.2 L Total Bilirubin 0.8 AST 15 ALT 14 Alkaline Phosphatase 43 Total Protein 5.9 L Albumin 2.6 L Globulin 3.3 Albumin/Globulin Ratio 0.8 L Lipase 19 L Blood Type Cancelled Antibody Screen Cancelled Crossmatch IS Only See Detail PD MEDICAL DECISION MAKING - ED course ED course: MSE performed 22 male with severe UC and recently discovered non malignant mass 2/2 UC and c diff that may still persist after vanco QD tx not stable for dc will need transfer back to facility with GI called [facility] and hospitalist Dr Chester accepts to stabilize for safe transport, transfusion was started prior to transfer - Sepsis Event Vital Signs: Vital Signs - 24 hr 06/07/18 06/07/18 06/07/18 15:23 16:29 18:42 Temperature 36.6 C 37.0 C 36.4 C L Heart Rate 98 94 71 Respiratory 16 16 16 Rate Blood Pressure 114/70 127/83 H 127/66 O2 Saturation 99 99 06/07/18 19:01 Temperature 36.7 C Heart Rate 79 Respiratory 16 Rate Blood Pressure 120/66 O2 Saturation Oxygen O2 Source Room air Departure - Departure Disposition: 02 Transfer Acute Care Hosp Clinical Impression: Lower GI bleed, Symptomatic anemia Ulcerative colitis Qualifiers: Ulcerative colitis location: unspecified ulcerative colitis location Digestive disease complication type: unspecified complication Qualified Code(s): K51.919 - Ulcerative colitis, unspecified with unspecified complications Condition: Fair
[2018-06-07 20:04] VITALS: BP 114/76
== END 2018-06-07 20:30 | disposition short-term general hospital (02) ==
LOC: ED 15:20
DX: K92.2 Gastrointestinal hemorrhage, unspecified (principal); D64.9 Anemia, unspecified; K51.919 Ulcerative colitis, unspecified with unspecified complications
CPT/HCPCS: 36415; 36430; 80053; 83690; 85027; 85610; 85730; 86850; 86900; 86901; 86920; 96360; 99284; P9016

== ENCOUNTER 2018-06-07 20:33 | Outpatient (CLI) | payer MEDICAID | END 2018-06-07 20:34 | disposition short-term general hospital (02) | LOC: EMS 20:33 | PROVIDERS: ATTEND Surgery | DX: K92.2 Gastrointestinal hemorrhage, unspecified (principal) | CPT/HCPCS: A0425; A0426; A0999 ==

== ENCOUNTER 2018-07-04 15:48 | Emergency (ER) | payer MEDICAID ==
[2018-07-04 16:30] LABS: HGB - HEMOGLOBIN 8.1 g/dL (14.0-18.0); MEAN CORPUSCULAR HEMOGLOBIN 22.3 pg (27.0-31.0); MEAN CORPUSCULAR HGB CONC 32.3 g/dL (32.0-36.0); MEAN CORPUSCULAR VOLUME 69.2 fL (80.0-94.0); MEAN PLATELET VOLUME 6.5 fL (7.4-11.4); RED BLOOD COUNT 3.62 10^6/uL (4.70-6.10); WHITE BLOOD COUNT 7.1 x10^3/uL (4.8-10.8)
[2018-07-04 16:34] LABS: PT - PROTHROMBIN TIME 11.7 secs (9.9-12.6)
[2018-07-04 16:41] LABS: ALBUMIN 2.9 g/dL (3.2-5.5); BILIRUBIN,TOTAL 0.6 mg/dL (0.2-1.0); CALCIUM 8.4 mg/dL (8.5-10.3); CREATININE 1.1 mg/dL (0.6-1.2); TOTAL PROTEIN 5.9 g/dL (6.7-8.2)
--- NOTE | 2018-07-04 17:23 | ED Physician Documentation ---
PD HPI GI BLEED - Stated complaint Stated Complaint: GI BLEED - Chief complaint Chief Complaint: Abd Pain - History obtained from History obtained from: Patient, Family - History of Present Illness Timing - onset: Chronic Timing - duration: Months Timing - details: Intermittant Pain level max: 0 Pain level now: 0 Associated symptoms: BRBPR (states improving) Contributing factors: Other (ulcerative colitis). No: Sick contact, Bad food, Travel, Recent antibiotics, Alcohol use, Aspirin use, NSAID use, Stress, Anticoagulated, Diabetes Improved by: Other (prednisone) Worsened by: Other (nothing) Similar symptoms before: Diagnosis (ulcerative colitis) Recently seen: Other (seen by GI 3 days ago and his PCP last week. Hgb was 8.0 at that time.) Review of Systems Ten Systems: 10 systems reviewed and negative Constitutional: denies: Fever, Chills Nose: denies: Rhinorrhea / runny nose, Congestion Throat: denies: Sore throat Cardiac: denies: Chest pain / pressure Respiratory: denies: Cough : denies: Dysuria Skin: denies: Rash Musculoskeletal: denies: Neck pain, Back pain Neurologic: reports: Generalized weakness. denies: Syncope, Seizure PD PAST MEDICAL HISTORY - Past Medical History Past Medical History: Yes Cardiovascular: None Respiratory: None Endocrine/Autoimmune: None GI: Ulcerative colitis Psych: ADD/ADHD, Other Derm: None - Past Surgical History Past Surgical History: Yes General: Other - Present Medications Home Medications: Ambulatory Orders Medication Instructions Recorded Confirmed Clonidine HCl [Catapres] 0.2 mg PO QPM 01/11/18 04/21/18 Fluoxetine HCl [Prozac] 20 mg PO DAILY 01/11/18 04/21/18 risperiDONE [Risperdal] 1 mg PO QPM 01/11/18 04/21/18 Dextroamphetamine/Amphetamine 20 mg PO .DAILY AT 4PM 04/21/18 04/21/18 [Dextroamp-Amphet ER 20 mg Cap] Dextroamphetamine/Amphetamine 30 mg PO .DAILY AT 10AM 04/21/18 04/21/18 [Dextroamp-Amphet ER 30 mg Cap] Mesalamine [Pentasa] 250 mg PO 06/07/18 Mesalamine W/Cleansing Wipes 4 gm RC QPM #7 enema.kit 07/04/18 [Mesalamine 4 gm/60 ml Kit] predniSONE [Prednisone] 20 mg PO DAILY #14 tablet 07/04/18 - Allergies Allergies/Adverse Reactions: Allergies Allergy/AdvReac Type Severity Reaction Status Date / Time No Known Drug Allergies Allergy Verified 07/04/18 15:54 - Social History Does the pt smoke?: No Smoking Status: Never smoker Does the pt drink ETOH?: No Does the pt have substance abuse?: No - Immunizations Immunizations are current?: Yes - POLST Patient has POLST: No PD ED PE NORMAL - Vitals Vital signs reviewed: Yes - General General: Alert and oriented X 3, No acute distress - HEENT HEENT: Moist mucous membranes - Neck Neck: Supple, no meningeal sign - Cardiac Cardiac: RRR, Strong equal pulses - Respiratory Respiratory: No respiratory distress, Clear bilaterally - Abdomen Abdomen: Soft, Non tender, Non distended - Derm Derm: Warm and dry - Neuro Neuro: Alert and oriented X 3 - Psych Psych: Normal mood, Normal affect Results - Vitals Vitals: Vital Signs - 24 hr 07/04/18 07/04/18 15:51 17:34 Temperature 36.5 C 36.6 C Heart Rate 137 H 108 H Respiratory 20 18 Rate Blood Pressure 122/79 153/90 H O2 Saturation 98 100 Oxygen O2 Source Room air - Labs Labs: Laboratory Tests 07/04/18 07/04/18 07/04/18 16:20 16:20 16:20 WBC 7.1 RBC 3.62 L Hgb 8.1 L Hct 25.1 L MCV 69.2 L MCH 22.3 L MCHC 32.3 RDW 23.0 H Plt Count 414 MPV 6.5 L PT 11.7 INR 1.0 APTT 28.8 Sodium Potassium Chloride Carbon Dioxide Anion Gap BUN Creatinine Estimated GFR (MDRD) Glucose Calcium Total Bilirubin AST ALT Alkaline Phosphatase Total Protein Albumin Globulin Albumin/Globulin Ratio Lipase Blood Type O POSITIVE Antibody Screen NEGATIVE 07/04/18 16:20 WBC RBC Hgb Hct MCV MCH MCHC RDW Plt Count MPV PT INR APTT Sodium 134 L Potassium 3.8 Chloride 97 L Carbon Dioxide 30 Anion Gap 7.0 BUN 9 Creatinine 1.1 Estimated GFR (MDRD) 83 L Glucose 97 Calcium 8.4 L Total Bilirubin 0.6 AST 14 ALT 12 Alkaline Phosphatase 44 Total Protein 5.9 L Albumin 2.9 L Globulin 3.0 Albumin/Globulin Ratio 1.0 Lipase 27 Blood Type Antibody Screen PD MEDICAL DECISION MAKING - ED course Complexity details: reviewed results, re-evaluated patient, considered differential, d/w patient, d/w software security consultant ED course: Patient is a 22-year-old male with a long-standing history of ulcerative colitis. He recently finished his prednisone and feels like his rectal bleeding has increased. His hemoglobin is stable from prior. He is above transfusion levels still. Is not acutely hypoxic or short of breath. Discussed the case with [facility] gastroenterology, Dr. Chi who recommends restarting on steroids and can trial on mesalamine enemas. Patient is well-appearing, nontoxic. Patient and family counseled regarding signs and symptoms for which I believe and urgent re-evaluation would be necessary. Patient with good understanding of and agreement to plan and is comfortable going home at this time This document was made in part using voice recognition software. While efforts are made to proofread this document, sound alike and grammatical errors may occur. - Sepsis Event Vital Signs: Vital Signs - 24 hr 07/04/18 07/04/18 15:51 17:34 Temperature 36.5 C 36.6 C Heart Rate 137 H 108 H Respiratory 20 18 Rate Blood Pressure 122/79 153/90 H O2 Saturation 98 100 Oxygen O2 Source Room air Departure - Departure Disposition: 01 Home, Self Care Clinical Impression: Ulcerative colitis Qualifiers: Ulcerative colitis location: other ulcerative colitis Digestive disease complication type: with rectal bleeding Qualified Code(s): K51.811 - Other ulcerative colitis with rectal bleeding Condition: Good Instructions: ED Colitis Ulcerative Follow-Up: Jerri Villarreal ARNP [Primary Care Provider] - Within 3 Days Prescriptions: Mesalamine W/Cleansing Wipes [Mesalamine 4 gm/60 ml Kit] 4 gm RC QPM #7 enema.kit predniSONE [Prednisone] 20 mg PO DAILY #14 tablet Comments: We will restart you on the steroids today. I spoke with GI on-call who recommended mesalamine enemas. This will likely help your bleeding. Return if you worsen Discharge Date/Time: 07/04/18 17:46
[2018-07-04] MEDS ORDERED: predniSONE 20 MG TABLET PO STA (17:24)
[2018-07-04 17:35] VITALS: BP 153/90
== END 2018-07-04 17:46 | disposition home or self-care (01) ==
LOC: ED 15:48
DX: K51.811 Other ulcerative colitis with rectal bleeding (principal)
CPT/HCPCS: 36415; 80053; 83690; 85027; 85610; 85730; 86850; 86900; 86901; 99283; J7512

== ENCOUNTER 2018-07-06 15:00 | Outpatient (CLI) | payer MEDICAID | END 2018-07-06 15:01 | disposition home or self-care (01) | LOC: RT.N 15:00 | PROVIDERS: ATTEND Nurse Practitioner Gerontology | DX: R00.0 Tachycardia, unspecified (principal); K51.911 Ulcerative colitis, unspecified with rectal bleeding; F90.9 Attention-deficit hyperactivity disorder, unspecified type | CPT/HCPCS: 93005 ==

== ENCOUNTER 2018-07-06 16:11 | Inpatient (IN) | payer MEDICAID ==
[2018-07-06 16:33] LABS: BASOPHILS % (AUTO) 0.5 %; EOSINOPHILS # (AUTO) 0.3 10^3/uL (0.0-0.7); EOSINOPHILS % (AUTO) 3.3 %; HGB - HEMOGLOBIN 7.6 g/dL (14.0-18.0); LYMPHOCYTES # (AUTO) 1.2 10^3/uL (1.5-3.5); MEAN CORPUSCULAR HEMOGLOBIN 22.5 pg (27.0-31.0); MEAN CORPUSCULAR HGB CONC 32.2 g/dL (32.0-36.0); MEAN CORPUSCULAR VOLUME 70.1 fL (80.0-94.0); MEAN PLATELET VOLUME 6.5 fL (7.4-11.4); MONOCYTES # (AUTO) 1.8 10^3/uL (0.0-1.0); MONOCYTES % (AUTO) 23.6 %; NEUTROPHILS # (AUTO) 4.4 10^3/uL (1.5-6.6); NEUTROPHILS % (AUTO) 56.6 %; PLT - PLATELET COUNT 398 10^3/uL (130-450); RED BLOOD COUNT 3.36 10^6/uL (4.70-6.10); RED CELL DISTRIBUTION WIDTH 23.2 % (12.0-15.0); WHITE BLOOD COUNT 7.8 x10^3/uL (4.8-10.8)
[2018-07-06 16:44] LABS: ALBUMIN 2.7 g/dL (3.2-5.5); ALBUMIN/GLOBULIN RATIO 0.9 (1.0-2.2); BILIRUBIN,TOTAL 0.6 mg/dL (0.2-1.0); CALCIUM 8.2 mg/dL (8.5-10.3); TOTAL PROTEIN 5.6 g/dL (6.7-8.2)
[2018-07-06] MEDS ORDERED: SODIUM CHLORIDE 0.9% 1,000 ML IV ONE ×2 (17:30)
--- NOTE | 2018-07-06 17:32 | ED Physician Documentation ---
History of Present Illness - Stated complaint Stated Complaint: ABNORMAL BLOOD TEST/INCREASED HR - Chief complaint Chief Complaint: General - History obtained from History obtained from: Patient, Family - History of Present Illness Timing: Chronic Pain level max: 0 Pain level now: 0 Improved by: nothing Worsened by: nothing - Additonal information Additional information: Patient with chronic ulcerative colitis. Seen here a few days ago for rectal bleeding. did not fill his rx and has continue to have rectal bleeding. PCP sent him in for eval today because of continued bleeding. Review of Systems Constitutional: denies: Fever, Chills Skin: denies: Rash Musculoskeletal: denies: Neck pain, Back pain Neurologic: denies: Focal weakness, Numbness, Headache PD PAST MEDICAL HISTORY - Past Medical History Past Medical History: Yes Cardiovascular: None Respiratory: None Endocrine/Autoimmune: None GI: Ulcerative colitis Psych: ADD/ADHD, Other Derm: None - Past Surgical History Past Surgical History: Yes General: Other - Present Medications Home Medications: Ambulatory Orders Medication Instructions Recorded Confirmed Clonidine HCl [Catapres] 0.2 mg PO QPM 01/11/18 07/06/18 Fluoxetine HCl [Prozac] 20 mg PO DAILY 01/11/18 07/06/18 risperiDONE [Risperdal] 1 mg PO QPM 01/11/18 07/06/18 Dextroamphetamine/Amphetamine 20 mg PO .DAILY AT 4PM 04/21/18 07/06/18 [Dextroamp-Amphet ER 20 mg Cap] Dextroamphetamine/Amphetamine 30 mg PO .DAILY AT 10AM 04/21/18 07/06/18 [Dextroamp-Amphet ER 30 mg Cap] Docusate Sodium 100 mg PO BID 07/06/18 07/06/18 Mesalamine [Apriso] 1.5 g PO DAILY 07/06/18 07/06/18 - Allergies Allergies/Adverse Reactions: Allergies Allergy/AdvReac Type Severity Reaction Status Date / Time No Known Drug Allergies Allergy Verified 07/06/18 16:18 - Social History Does the pt smoke?: No Smoking Status: Never smoker Does the pt drink ETOH?: No Does the pt have substance abuse?: No - Immunizations Immunizations are current?: Yes - POLST Patient has POLST: No PD ED PE NORMAL - Vitals Vital signs reviewed: Yes - General General: Alert and oriented X 3, No acute distress - HEENT HEENT: Moist mucous membranes, Other (pale appearing) - Neck Neck: Supple, no meningeal sign - Cardiac Cardiac: RRR - Respiratory Respiratory: No respiratory distress, Clear bilaterally - Abdomen Abdomen: Soft, Non tender, Non distended - Derm Derm: Warm and dry - Neuro Neuro: Alert and oriented X 3 - Psych Psych: Normal mood, Normal affect Results - Vitals Vitals: Vital Signs - 24 hr 07/06/18 16:14 Temperature 37.2 C Heart Rate 116 H Respiratory 16 Rate Blood Pressure 119/74 O2 Saturation 99 Oxygen O2 Source Room air - Labs Labs: Laboratory Tests 07/06/18 07/06/18 07/06/18 16:25 16:25 17:44 WBC 7.8 RBC 3.36 L Hgb 7.6 L Hct 23.6 L MCV 70.1 L MCH 22.5 L MCHC 32.2 RDW 23.2 H Plt Count 398 MPV 6.5 L Neut # (Auto) 4.4 Lymph # (Auto) 1.2 L [place] # (Auto) 1.8 H Eos # (Auto) 0.3 Baso # (Auto) 0.0 Absolute Nucleated RBC 0.00 Nucleated RBC % 0.0 Sodium 135 Potassium 3.8 Chloride 101 Carbon Dioxide 29 Anion Gap 5.0 L BUN 11 Creatinine 1.0 Estimated GFR (MDRD) 93 Glucose 91 Calcium 8.2 L Total Bilirubin 0.6 AST 14 ALT 13 Alkaline Phosphatase 41 L Total Protein 5.6 L Albumin 2.7 L Globulin 2.9 Albumin/Globulin Ratio 0.9 L Lipase 25 Blood Type O POSITIVE Antibody Screen NEGATIVE Crossmatch IS Only See Detail PD MEDICAL DECISION MAKING - ED course Complexity details: reviewed old records, reviewed results, re-evaluated patient , considered differential, d/w patient, d/w family, d/w telesales consultant ED course: Patient is a 22-year-old male who presents to the emergency department with continued GI bleed from ulcerative colitis. Hemoglobin has not dropped below 8 and he is feeling tired and weak. Discussed the case with Dr. Chi, on-call for gastroenterology at [facility] and she recommends placing her in observation for transfusion of packed red blood cells and then starting her on prednisone 40 mg p.o. daily until he can be seen by GI as an outpatient. Discussed the case with Dr. Mcdonnell, hospitalist who accepts. This document was made in part using voice recognition software. While efforts are made to proofread this document, sound alike and grammatical errors may occur. - Sepsis Event Vital Signs: Vital Signs - 24 hr 07/06/18 16:14 Temperature 37.2 C Heart Rate 116 H Respiratory 16 Rate Blood Pressure 119/74 O2 Saturation 99 Oxygen O2 Source Room air Departure - Departure Disposition: [facility] DC/Xfer Clinical Impression: Symptomatic anemia, Lower GI bleed Condition: Stable Discharge Date/Time: 07/06/18 18:36
[2018-07-06] MEDS ORDERED: predniSONE 20 MG TABLET PO STA (17:39)
[2018-07-06] MEDS ORDERED: SODIUM CHLORIDE FLUSH 0.9% 10 ML SYRINGE IVP PRN (18:04)
[2018-07-06] MEDS ORDERED: HYDROmorphone 0.5 MG/0.5 ML SYRINGE IVP PRN (18:04)
[2018-07-06] MEDS ORDERED: ONDANSETRON 4 MG/2 ML VIAL IVP PRN (18:04)
[2018-07-06] MEDS ORDERED: diphenhydrAMINE 25 MG CAPSULE PO ONE (18:12)
[2018-07-06] MEDS ORDERED: DEXTROAMP AMPHET PO SCH (18:15)
[2018-07-06] MEDS ORDERED: DEXTROSE 5%-0.9% NACL 1,000 ML IV SCH (19:00)
[2018-07-06] MEDS ORDERED: SODIUM CHLORIDE 0.9% 500 ML IV ONE ×2 (19:28→22:50)
--- NOTE | 2018-07-06 20:29 | HISTORY & PHYSICAL EXAMINATION ---
Chief Complaint - Chief Complaint Chief Complaint: rectal bleeding History of Present Illness - Admitted From Admitted From:: ER/Home - History Obtained From Records Reviewed: [employer] History obtained from: patient and [employer] Exam Limitations: none - History of Present Illness HPI Comment/Other: The patient is a 22-year-old black male who has problems with autism and ADD. He still lives with his family. Other than the aforementioned diagnoses he considered himself healthy until the last few months. He started having rectal bleeding almost on a daily basis, mildly uncomfortable. He was seen by Dr. Veliz 's office, general surgery, in December in his office after being referred there by Dr. Jerri Solares. Dr. Cohen did a colonoscopy on January 11, 2018 and found him to have proctitis and an ascending colitis. The pathology report showed him to have diffuse moderate chronic colitis with focal mild activity. Negative for granulomas and dysplasia. These were the findings seen in both the descending colon and rectum. The findings were compatible with idiopathic inflammatory disease. Given the anatomic distribution and diffuse nature of involvement of the biopsies, chronic ulcerative colitis was favored as a diagnosis. He was placed on mesalamine. Dose was gradually reduced. As the dose was reduced, he had increasing bloody diarrhea and abdominal pain over several weeks. He was seen in the emergency room April 20 and was found to be anemic and dehydrated with a hemoglobin of 10 and tachycardic to 120. He was admitted to the general surgical service, transfused, given IV steroids with hydrocortisone 100 mg every 8 hours. Within 24 hours his bloody diarrhea had almost completely resolved, and by 48 hours he was not having any more blood in the stool. He was still having loose stools. He was placed on a regular diet which he tolerated and he was sent home. He returned to the emergency room May 06, and now hemoglobin was 6.6. He had dropped from 10. From the emergency room he was transferred to [facility]. While at [facility] he had CT of the abdomen, EGD, colonoscopy. He had a large mass that was not malignant due to ulcerative colitis. He was diagnosed with Clostridium difficile which was believed to trigger the ulcerative colitis flare. He was put on vancomycin, mesalamine, prednisone. He was then seen again in the emergency room June 07 because of weakness and fatigue. His PCP sent him back to the emergency room and his hemoglobin was 7.7. He was again transferred back to [facility]. Transfused and sent home. He has seen by gastroenterology, [facility], on July 01. He is to be started on a new "Mab" but he cannot remember the name of it. So far authorization has not gone through. He returned to as July 04, again through the emergency room with bright red blood per rectum. His hemoglobin was stable. He was off of his prednisone. And because of the prednisone taper felt like his rectal bleeding had increased. The case was discussed with [facility] gastroenterology, Dr. Chi, and it was recommended that he restart his steroids and back on mesalamine enemas. Since his visit to the emergency room, prescriptions were called in but he did not pick them up till today. Because he was still having rectal bleeding his PCP sent him back to the emergency room again. He is continued to have almost daily bloody stool. Except for maybe a couple of days in the last month. He has generalized abdominal pain all the time. It does not matter if he eats or he does not. He denies fevers, sweats. In January he was 99.6 kg, and today he is 92 kg. Today his hemoglobin is 7.6. Gastroenterology would like him transfused. Resumed on oral steroids at prednisone 40 mg a day. Continue his mesalamine. And he will be re-seen in their office. History - Past Medical History Cardiovascular: reports: None Respiratory: reports: None Neuro: reports: None Endocrine/Autoimmune: reports: None GI: reports: Ulcerative colitis : reports: None HEENT: reports: None Psych: reports: ADD/ADHD, Other (Autism) Musculoskeletal: reports: None Derm: reports: None MRSA Hx?: No - Past Surgical History General: reports: Colonoscopy, EGD, Other - Family & Social History Family History Comment/Other: Dad is in his 50s and has high blood pressure and heart disease. Mom is in her 50s and is completely healthy. He has 1 brother, 1 sister. No one has mental health issues, ulcerative colitis, thyroid, cancer , cardiovascular disease. He has no children Living arrangement: At home Living Situation: With family Social History Notes: He has a high school education. He has not yet to be able to live independently as of yet. He did try and join a job core 2 years ago but because of emotional health issues he had to come home. He really does not like living at home. His plan was to go back to the job core on July 19. This delay with his ulcerative colitis and new diagnosis has left him really frustrated. He says he has never smoked, had no history of alcohol abuse. He has never tried cannabis, cocaine, heroin, LSD, or methamphetamines. - Substance History Use: Uses substance without health or social issues: NONE Abuse: Recurrent use of substance despite neg consequences: NONE Dependence: Experiences withdrawal or developed tolerances: NONE - POLST Patient has POLST: No POLST Status: Full Code Meds/Allgy - Home Medications Home Medications: Ambulatory Orders Medication Instructions Recorded Confirmed Clonidine HCl [Catapres] 0.2 mg PO QPM 01/11/18 07/06/18 Fluoxetine HCl [Prozac] 20 mg PO DAILY 01/11/18 07/06/18 risperiDONE [Risperdal] 1 mg PO QPM 01/11/18 07/06/18 Dextroamphetamine/Amphetamine 20 mg PO .DAILY AT 4PM 04/21/18 07/06/18 [Dextroamp-Amphet ER 20 mg Cap] Dextroamphetamine/Amphetamine 30 mg PO .DAILY AT 10AM 04/21/18 07/06/18 [Dextroamp-Amphet ER 30 mg Cap] Docusate Sodium 100 mg PO BID 07/06/18 07/06/18 Mesalamine [Apriso] 1.5 g PO DAILY 07/06/18 07/06/18 - Allergies Allergies/Adverse Reactions: Allergies Allergy/AdvReac Type Severity Reaction Status Date / Time No Known Drug Allergies Allergy Verified 07/06/18 16:18 Review of Systems - Constitutional Constitutional: reports: Fatigue, Malaise, Weakness, Weight loss. denies: Fever , Chills, Poor appetite, Diaphoresis, Night sweats - Eyes Eyes: denies: Pain, Irritation, Amaurosis, Blurred vision, Vision loss - Ears, Nose & Throat Ears, Nose & Throat: denies: Ear pain, Hearing loss, Vertigo, Nasal obstruction , Nasal congestion - Cardiovascular Cariovascular: denies: Irregular heart rate, Palpitations, Chest pain, Edema, Lightheadedness, Syncope - Respiratory Respiratory: denies: Cough, Sputum production, Wheezing, Orthopnea, SOB at rest , SOB with exertion - Gastrointestinal Gastrointestinal: reports: Abdominal pain, Diarrhea, Rectal bleeding, Bloody stools, Other (In spite of his generalized abdominal aching, he still has an appetite and likes to eat.). denies: Abdominal distention, Constipation, Change in bowel habits, Black stools, Nausea, Vomiting, Bile emesis, Shawn blood emesis - Genitourinary Genitourinary: denies: Dysuria, Frequency, Urgency, Hematuria, Flank pain, Nocturia - Musculoskeletal Musculoskeletal: denies: Muscle pain, Back pain, Muscle aches, Stiffness - Integumentary Integumentary: denies: Rash, Pruritis, Lesions, Dryness, Pigment changes - Neurological Neurological: reports: General weakness. denies: Focal weakness, Headache, Dizziness, Memory problems, Pre-existing deficit, Abnormal gait - Psychiatric Psychiatric: reports: Anxiety. denies: Depression, Suicidal, Delusions, Hallucinations - Endocrine Endocrine: denies: Polyuria, Polydypsia, Polyphagia, Intolerance to cold, Intolerance to heat - Hematologic/Lymphatic Hematologic/Lymphatic: reports: Anemia. denies: Bruising, Petechiae Exam - Vital Signs Reviewed Vital Signs: Yes Vital Signs: Vital Signs x48h Temp Pulse Pulse Resp BP BP Pulse Ox 07/06/18 20:08 37.1 C 96 17 108/65 07/06/18 19:51 37.4 C 98 16 116/70 07/06/18 18:50 37.2 C 98 20 122/70 99 - Physical Exam General Appearance: positive: No acute distress, Alert, Other (Young black male , laying comfortably on his left side, asleep but awakens easily when I walk into the room. There is no family at the bedside.) Eyes Bilateral: positive: PERRL, EOMI ENT: positive: Pharynx nml Neck: positive: No JVD. negative: Stiff neck, Carotid bruit Respiratory: positive: Chest non-tender. negative: Wheezes, Rales, Rhonchi Cardiovascular: positive: Regular rate & rhythm, No murmur. negative: Gallop/S4 , Friction rub Peripheral Pulses: positive: 2+ Abdomen: positive: Nml bowel sounds, Tenderness (Generalized and diffuse, mild.) . negative: Guarding, Rebound Skin: positive: Warm, Dry, Pallor Extremities: positive: Non-tender, Full ROM, Nml appearance Neurologic/Psychiatric: positive: Oriented x3, CN's nml (2-12), Motor nml Conclusion/Plan - Problem List (1) Chronic blood loss anemia Conclusion/Plan: From his bloody diarrhea that appears to be chronic and almost daily. That in and of itself is from ulcerative colitis. He has had a colonoscopy here, a colonoscopy in [facility] and also has had an EGD. At this time I will not be consulting general surgery. Plan: Admit for transfusion Check hemoglobin and hematocrit daily At request of gastroenterology, aim for greater than 10 g of hemoglobin (2) Lower GI bleed Conclusion/Plan: From ulcerative colitis. Please see #3 (3) Ulcerative colitis Conclusion/Plan: Resume prednisone 40 mg p.o. daily. Resume mesalamine. Follow-up with outpatient gastroenterology to then start new immunotherapy depending on insurance authorization.The patient asked if he could please have a general surgical consult because he would like to ask the surgeon if he could just have surgery to "cut out the bad part". I explained to him the nature of ulcerative colitis. I explained to him that surgical remedy is usually not recommended. I did explain to him the chronic nature of the disease, the need for compliance , and that with good control by medication, he should have a relatively normal life. Qualifiers: Ulcerative colitis location: other ulcerative colitis Digestive disease complication type: with rectal bleeding Qualified Code(s): K51.811 - Other ulcerative colitis with rectal bleeding (4) ADD (attention deficit disorder) Conclusion/Plan: resume his usual meds. - Lab Results Fish Bones: 07/06/18 16:25 07/06/18 16:25 Core Measures - Anticipated LOS I expect patient to be DC'd or transferred within 96 hours.: Yes - DVT/VTE - Prophylaxis VTE/DVT Device ordered at admit?: No Not Ordered - Low Risk: Very low risk VTE/DVT Prophylaxis med ordered at admit?: No Not Ordered - Medical Reason: Contraindicated (Chronic GI bleed)
[2018-07-06] MEDS ORDERED: cloNIDine 0.1 MG TABLET PO SCH (21:00)
[2018-07-06] MEDS ORDERED: risperiDONE 1 MG TABLET PO SCH (21:00)
[2018-07-06] MEDS: FAMOTIDINE 20 MG/50 ML 50 ML IV SCH (22:05)
[2018-07-06] MEDS: SODIUM CHLORIDE FLUSH 0.9% 10 ML SYRINGE IVP SCH (23:39)
[2018-07-07 06:09] LABS: BASOPHILS % (AUTO) 0.4 %; HGB - HEMOGLOBIN 8.3 g/dL (14.0-18.0); LYMPHOCYTES # (AUTO) 0.7 10^3/uL (1.5-3.5); LYMPHOCYTES % (AUTO) 9.2 %; MEAN CORPUSCULAR HEMOGLOBIN 24.1 pg (27.0-31.0); MEAN CORPUSCULAR HGB CONC 32.6 g/dL (32.0-36.0); MEAN CORPUSCULAR VOLUME 73.8 fL (80.0-94.0); MEAN PLATELET VOLUME 6.9 fL (7.4-11.4); MONOCYTES # (AUTO) 1.1 10^3/uL (0.0-1.0); NEUTROPHILS # (AUTO) 6.1 10^3/uL (1.5-6.6); NEUTROPHILS % (AUTO) 76.4 %; PLT - PLATELET COUNT 320 10^3/uL (130-450); RED BLOOD COUNT 3.46 10^6/uL (4.70-6.10); RED CELL DISTRIBUTION WIDTH 23.9 % (12.0-15.0)
[2018-07-07] MEDS ORDERED: FLUoxetine 10 MG CAPSULE PO SCH (09:00)
[2018-07-07] MEDS ORDERED: predniSONE 20 MG TABLET PO SCH (09:00)
[2018-07-07] MEDS ORDERED: POLYETHYLENE GLYCOL 3350 17 GM PACKET PO SCH (09:00)
[2018-07-07] MEDS ORDERED: MESALAMINE 400 MG CAPSULE PO SCH (09:00)
[2018-07-07] MEDS: FAMOTIDINE 20 MG/50 ML 50 ML IV SCH (09:22)
[2018-07-07] MEDS: SODIUM CHLORIDE FLUSH 0.9% 10 ML SYRINGE IVP SCH (09:22)
[2018-07-07] MEDS ORDERED: cloNIDine 0.1 MG TABLET PO SCH (11:01)
[2018-07-07 15:27] VITALS: BP 119/74
--- NOTE | 2018-07-07 15:46 | Discharge Plan ---
Discharge Plan Disposition: 01 Home, Self Care Condition: Stable Prescriptions: predniSONE [Deltasone] 40 mg PO DAILY #30 tablet Diet: Soft Activity Restrictions: Activity as Tolerated Shower Restrictions: No Additional Instructions or Follow Up instructions: Start taking Prednisone 40 mg daily. A new prescription was ordered for you, sent to [facility] in [place]. Continue usine the Mesalamine. Continue all your other medications that you were taking pre-hospitalization. See Dr. Moore, at [facility], at HIS NEXT AVAILABLE OPENING. You can tell them that Dr Pacheco was contacted by the Hospitalist at [facility] and Dr Pacheco said to fit him in the next available opening. See your PCP if needed for refills before that. If you have worsening symptoms, come back to the ER. No Smoking: If you smoke, Please STOP! Call for help. Follow-up with: Jerri Villarreal ARNP [Primary Care Provider] -
--- NOTE | 2018-07-12 03:49 | DISCHARGE SUMMARY ---
Physician: Rita Mcdonnell MD DATE OF ADMISSION: 07/06/2018 DATE OF DISCHARGE: 07/07/2018 HISTORY OF PRESENT ILLNESS: This is a 22-year-old, black male who has a history of autism and ADD. He has had a recent diagnosis of ulcerative colitis this year after many months of trouble with abdominal pain and bloody diarrhea. Most recently, he was on prednisone and mesalamine. These were weaned to off. He then developed recurrent symptoms over this past one month. He presented to our emergency room 2 days before this admission with an ulcerative colitis flare and admitted that he was on no medications. His hemoglobin was stable, and he was advised to restart medications, and was discharged home. He had not yet restarted medications and returned 2 days later with continued bright red blood per rectum with every bowel movement, weakness, and abdominal pain. The emergency room doctor spoke to [facility], Dr. Chi, and it was recommended that he restart his steroids and mesalamine enemas, and that he have transfusion for marked anemia. HOSPITAL COURSE AND DISCHARGE DIAGNOSES 1. Ulcerative colitis with rectal bleeding. The patient's hemoglobin was 7.6. He was transfused 2 units of packed red cells. A repeat hemoglobin was 8.3. He was started back on prednisone 40 mg daily and mesalamine enemas. He required minimal medications for abdominal pain. He was checked for orthostasis , but his postural blood pressure was stable, and he was discharged the very next day. He was able to tolerate a diet as well. 2. Autism. The patient was continued on his medications. 3. Attention deficit disorder. The patient was continued on his medications. ALLERGIES: NONE. MEDICATIONS AT DISCHARGE 1. Mesalamine 1.5 grams daily. 2. Prozac 20 mg daily. 3. Dextroamphetamine/amphetamine 30 mg daily and 20 mg in the afternoon. 4. Risperdal 1 mg in the evening. 5. Clonidine 0.2 mg in the evening. 6. Prednisone 40 mg daily. PHYSICAL EXAMINATION AT DISCHARGE VITAL SIGNS: Stable. Blood pressure 122/76, without orthostasis. Heart rate 88, in sinus rhythm. Afebrile. Room air saturation 98%. HEENT: Unremarkable. NECK: Without JVD or carotid bruits. CHEST: Clear. HEART: Sounds normal. ABDOMEN: Soft, nontender. Hyperactive bowel sounds. EXTREMITIES: Unremarkable. NEUROLOGIC: Intact. LABORATORIES AND IMAGING: Reviewed and summarized above. 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 Moore at [facility], after I spoke to Dr Moore, at his next available opening. He is to see his PCP for other refills if needed before that time. CODE STATUS: FULL CODE. Time required to complete this entire dictation, chart review, discharge, medication orders, patient education: 30 minutes. cc: AVRIL Tiwari TD: 07/11/2018 21:10 MTDD
== END 2018-07-07 15:55 | disposition home or self-care (01) | DRG 386 ==
LOC: ED 16:11 → MS2 18:04
PROVIDERS: ADMIT Specialist; ATTEND Internal Medicine
PROC: 30233N1 Transfusion of Nonautologous Red Blood Cells into Peripheral Vein, Percutaneous Approach (ICD-10-PCS; principal; 2018-07-06)
DX: K51.911 Ulcerative colitis, unspecified with rectal bleeding (principal); F84.0 Autistic disorder; D50.0 Iron deficiency anemia secondary to blood loss (chronic); F98.8 Other specified behavioral and emotional disorders with onset usually occurring in childhood and adolescence
CPT/HCPCS: 36415; 80053; 83690; 85025; 86850; 86900; 86901; 86920; 99283; 99284

== ENCOUNTER 2018-07-15 10:25 | Outpatient (CLI) | payer MEDICAID ==
[2018-07-15 10:46] LABS: BASOPHILS % (AUTO) 0.3 %; EOSINOPHILS % (AUTO) 0.2 %; HGB - HEMOGLOBIN 8.8 g/dL (14.0-18.0); LYMPHOCYTES # (AUTO) 0.6 10^3/uL (1.5-3.5); LYMPHOCYTES % (AUTO) 4.9 %; MEAN CORPUSCULAR HEMOGLOBIN 23.1 pg (27.0-31.0); MEAN CORPUSCULAR HGB CONC 32.4 g/dL (32.0-36.0); MEAN CORPUSCULAR VOLUME 71.2 fL (80.0-94.0); MEAN PLATELET VOLUME 6.9 fL (7.4-11.4); MONOCYTES # (AUTO) 0.7 10^3/uL (0.0-1.0); NEUTROPHILS % (AUTO) 88.6 %; PLT - PLATELET COUNT 382 10^3/uL (130-450); RED CELL DISTRIBUTION WIDTH 24.8 % (12.0-15.0); WHITE BLOOD COUNT 11.3 x10^3/uL (4.8-10.8)
[2018-07-16 09:08] LABS: HEPATITIS B SURFACE ANTIGEN NON-REACTIVE (NON-REACTIVE)
[2018-07-16 12:01] LABS: HEPATITIS A AB TOTAL(IMMUNITY) REACTIVE (NON-REACTIVE); HEPATITIS B CORE AB TOTAL NON-REACTIVE (NON-REACTIVE)
== END 2018-07-15 10:26 | disposition home or self-care (01) ==
LOC: LAB 10:25
PROVIDERS: ATTEND Internal Medicine
DX: D64.9 Anemia, unspecified (principal); K51.90 Ulcerative colitis, unspecified, without complications
CPT/HCPCS: 36415; 81599; 85025; 86317; 86480; 86704; 86708; 87340

== ENCOUNTER 2018-07-20 08:00 | Outpatient (CLI) | payer MEDICAID | END 2018-07-20 08:01 | disposition home or self-care (01) | LOC: LAB.R 08:00 | PROVIDERS: ATTEND Nurse Practitioner Gerontology | DX: K51.911 Ulcerative colitis, unspecified with rectal bleeding (principal); K62.5 Hemorrhage of anus and rectum; A04.72 Enterocolitis due to Clostridium difficile, not specified as recurrent | CPT/HCPCS: 87493 ==

== ENCOUNTER 2018-08-06 09:54 | Outpatient (CLI) | payer MEDICAID | END 2018-08-06 09:55 | disposition home or self-care (01) | LOC: LAB.R 09:54 | PROVIDERS: ATTEND Internal Medicine | DX: K92.1 Melena (principal); D64.9 Anemia, unspecified; K51.90 Ulcerative colitis, unspecified, without complications | CPT/HCPCS: 81599; 87230 ==

== ENCOUNTER 2018-08-14 13:30 | Observation (INO) | payer MEDICAID ==
[2018-08-14 14:14] LABS: BASOPHILS % (AUTO) 0.4 %; EOSINOPHILS % (AUTO) 0.3 %; LYMPHOCYTES % (AUTO) 8.1 %; MEAN CORPUSCULAR HEMOGLOBIN 19.9 pg (27.0-31.0); MEAN CORPUSCULAR HGB CONC 31.1 g/dL (32.0-36.0); MEAN PLATELET VOLUME 6.9 fL (7.4-11.4); MONOCYTES % (AUTO) 15.8 %; NEUTROPHILS % (AUTO) 75.4 %; PLT - PLATELET COUNT 419 10^3/uL (130-450); RED CELL DISTRIBUTION WIDTH 22.5 % (12.0-15.0); WHITE BLOOD COUNT 11.8 x10^3/uL (4.8-10.8)
[2018-08-14 14:17] LABS: HGB - HEMOGLOBIN 5.8 g/dL (14.0-18.0)
[2018-08-14 14:18] LABS: ABNORMAL LYMPHS % (MANUAL) 0 %; INR 1.1 (0.8-1.2); PT - PROTHROMBIN TIME 12.2 secs (9.9-12.6)
--- NOTE | 2018-08-14 14:39 | ED Physician Documentation ---
PD HPI GI BLEED - Stated complaint Stated Complaint: RECTAL BLEEDING/WEAKNESS - Chief complaint Chief Complaint: General - History obtained from History obtained from: Patient - History of Present Illness Timing - onset: How many weeks ago (1) Timing - duration: Weeks (1) Timing - details: Gradual onset, Still present Associated symptoms: BRBPR Contributing factors: Other (UC) Improved by: Meds Similar symptoms before: Diagnosis (UC and C. Diff requriring transfusion) Recently seen: Not recently seen - Additional information Additional information: 23-year-old male with autism and ADD has a history of ulcerative colitis that started about 1 year ago with intermittent rectal bleeding. He subsequently saw Dr. Winters was diagnosed with ulcerative colitis and started on mesalamine and steroids. He improved in April and then developed continued bleeding and required transfusion and transfer. He had a long hospitalization at [facility] and following this he has had a transfusion done here for symptomatic anemia and he has had another transfusion done at [facility] for symptomatic anemia and exacerbation of his disease. He states that he has run out of his prednisone and his symptoms have returned with bleeding that he has every day in the morning. He is now developed lightheadedness and dizziness again. 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 He has been on pentaza, meslamine and prednisone with some success. Review of Systems Constitutional: reports: Fatigue. denies: Fever, Chills Eyes: denies: Decreased vision Ears: denies: Ear pain Nose: denies: Rhinorrhea / runny nose, Congestion Throat: denies: Sore throat Cardiac: denies: Chest pain / pressure, Palpitations Respiratory: reports: Dyspnea. denies: Cough GI: reports: Diarrhea, Bloody / black stool. denies: Abdominal Pain, Nausea, Vomiting : denies: Dysuria, Frequency Skin: denies: Rash Musculoskeletal: denies: Neck pain, Back pain, Extremity pain Neurologic: reports: Generalized weakness. denies: Focal weakness, Numbness PD PAST MEDICAL HISTORY - Past Medical History Cardiovascular: None Respiratory: None Neuro: None Endocrine/Autoimmune: None GI: Ulcerative colitis : None HEENT: None Psych: ADD/ADHD, Other Musculoskeletal: None Derm: None - Past Surgical History Past Surgical History: Yes General: Other - Present Medications Home Medications: Ambulatory Orders Medication Instructions Recorded Confirmed Clonidine HCl [Catapres] 0.2 mg PO QPM 01/11/18 07/06/18 Fluoxetine HCl [Prozac] 20 mg PO DAILY 01/11/18 07/06/18 risperiDONE [Risperdal] 1 mg PO QPM 01/11/18 07/06/18 Dextroamphetamine/Amphetamine 20 mg PO .DAILY AT 4PM 04/21/18 07/06/18 [Dextroamp-Amphet ER 20 mg Cap] Dextroamphetamine/Amphetamine 30 mg PO .DAILY AT 10AM 04/21/18 07/06/18 [Dextroamp-Amphet ER 30 mg Cap] predniSONE [Deltasone] 25 mg PO DAILY 08/14/18 - Allergies Allergies/Adverse Reactions: Allergies Allergy/AdvReac Type Severity Reaction Status Date / Time No Known Drug Allergies Allergy Verified 07/06/18 16:18 - Social History Does the pt smoke?: No Smoking Status: Never smoker Does the pt drink ETOH?: No Does the pt have substance abuse?: No - Immunizations Immunizations are current?: Yes - POLST Patient has POLST: No POLST Status: Full Code PD ED PE NORMAL - Vitals Vital signs reviewed: Yes (tachy ) - General General: No acute distress, Well developed/nourished, Other (pale appearing male with some delay in execution of motor commands. ) - HEENT HEENT: Atraumatic, PERRL, EOMI - Neck Neck: Supple, no meningeal sign - Cardiac Cardiac: No murmur, Other (tachy to 110) - Respiratory Respiratory: No respiratory distress, Clear bilaterally - Abdomen Abdomen: Soft, Non tender - Back Back: No CVA TTP, No spinal TTP - Derm Derm: Normal color, Warm and dry, No rash - Extremities Extremities: No deformity, No edema - Neuro Neuro: certified tumor registrar 2-12 intact, No motor deficit, No sensory deficit, Normal speech Eye Opening: Spontaneous Motor: Obeys Commands Verbal: Oriented GCS Score: 15 - Psych Psych: Normal mood, Normal affect Results - Vitals Vitals: Vital Signs - 24 hr 08/14/18 13:35 Temperature 36.7 C Heart Rate 115 H Respiratory 18 Rate Blood Pressure 125/79 O2 Saturation 100 Oxygen O2 Source Room air - Labs Labs: Laboratory Tests 08/14/18 08/14/18 13:58 13:58 WBC 11.8 H RBC 2.90 L Hgb 5.8 L* Hct 18.6 L* MCV 64.0 L MCH 19.9 L MCHC 31.1 L RDW 22.5 H Plt Count 419 MPV 6.9 L PT 12.2 INR 1.1 APTT 25.9 PD MEDICAL DECISION MAKING - ED course Complexity details: reviewed old records, reviewed results, re-evaluated patient, considered differential, d/w patient ED course: 23 y/o Autistic male with a history of ulcerative colitis has gone off of his medications and has a flare of his colitis with extra bleeding and he is now symptomatic from anemia with a hemoglobin of 5.8. He will need admission for symptomatic anemia and treatment of ulcerative colitis. - Sepsis Event Vital Signs: Vital Signs - 24 hr 08/14/18 13:35 Temperature 36.7 C Heart Rate 115 H Respiratory 18 Rate Blood Pressure 125/79 O2 Saturation 100 Oxygen O2 Source Room air Departure - Departure Disposition: 66 [facility] DC/Xfer Clinical Impression: Symptomatic anemia, Lower GI bleed, Chronic blood loss anemia Ulcerative colitis Qualifiers: Ulcerative colitis location: unspecified ulcerative colitis location Digestive disease complication type: with rectal bleeding Qualified Code(s): K51.911 - Ulcerative colitis, unspecified with rectal bleeding Condition: Serious
[2018-08-14 14:50] LABS: ALBUMIN 2.1 g/dL (3.2-5.5); ALBUMIN/GLOBULIN RATIO 0.7 (1.0-2.2); BILIRUBIN,TOTAL 0.5 mg/dL (0.2-1.0); CALCIUM 7.9 mg/dL (8.5-10.3); CREATININE 1.3 mg/dL (0.6-1.2)
[2018-08-14] MEDS ORDERED: oxyCODONE 5 MG TABLET PO PRN (14:50)
[2018-08-14] MEDS ORDERED: SODIUM CHLORIDE FLUSH 0.9% 10 ML SYRINGE IVP PRN (14:50)
[2018-08-14] MEDS ORDERED: ONDANSETRON 4 MG/2 ML VIAL IVP PRN (14:50)
[2018-08-14] MEDS ORDERED: ONDANSETRON ODT 4 MG TABLET TL PRN (14:50)
[2018-08-14] MEDS ORDERED: PROCHLORPERAZINE 10 MG/2 ML VIAL IVP PRN (14:50)
[2018-08-14] MEDS ORDERED: ACETAMINOPHEN 325 MG TABLET PO PRN (14:50)
[2018-08-14] MEDS ORDERED: ACETAMINOPHEN 325 MG TABLET PO ONE (14:51)
--- NOTE | 2018-08-14 14:57 | HISTORY & PHYSICAL EXAMINATION ---
Chief Complaint - Chief Complaint Chief Complaint: rectal bleeding and fatigue in a pt w IBD History of Present Illness - Admitted From Admitted From:: Home/ER - History Obtained From Records Reviewed: [facility] History obtained from: Dr. Scanlon Exam Limitations: none - History of Present Illness HPI Comment/Other: He is a 23-year-old black male who is well-known to our service. He has a history of ADD and autism and unfortunately also has inflammatory bowel disease. When he is on his medications for IBD he does well. When he stops taking his medications he starts having rectal bleeding and symptomatic abdominal pain and anemia. He has been evaluated several times by general surgery and most recently had an endoscopy with Dr. Castro Winters. He now returns after not having taken his medicines for a few days. He began having rectal bleeding. Came to the emergency room with fatigue and rectal bleeding and his hemoglobin is 5.6. He started having rectal bleeding almost on a daily basis, mildly uncomfortable. He was seen by Dr. Veliz's office, general surgery, in December in his office after being referred there by Dr. Jerri Solares. Dr. Cohen did a colonoscopy on January 11, 2018 and found him to have proctitis and an ascending colitis. The pathology report showed him to have diffuse moderate chronic colitis with focal mild activity. Negative for granulomas and dysplasia. These were the findings seen in both the descending colon and rectum. The findings were compatible with idiopathic inflammatory disease. Given the anatomic distribution and diffuse nature of involvement of the biopsies, chronic ulcerative colitis was favored as a diagnosis. He was placed on mesalamine. Dose was gradually reduced. As the dose was reduced, he had increasing bloody diarrhea and abdominal pain over several weeks. He was seen in the emergency room April 20 and was found to be anemic and dehydrated with a hemoglobin of 10 and tachycardic to 120. He was admitted to the general surgical service, evan carrillo, given IV steroids with hydrocortisone 100 mg every 8 hours. Within 24 hours his bloody diarrhea had almost completely resolved, and by 48 hours he was not having any more blood in the stool. He was still having loose stools. He was placed on a regular diet which he tolerated and he was sent home. He returned to the emergency room May 06, and now hemoglobin was 6.6. He had dropped from 10. From the emergency room he was transferred to [facility]. While at [facility] he had CT of the abdomen, EGD, colonoscopy. He had a large mass that was not malignant due to ulcerative colitis. He was diagnosed with Clostridium difficile which was believed to trigger the ulcerative colitis flare. He was put on vancomycin, mesalamine, prednisone. He was then seen again in the emergency room June 07 because of weakness and fatigue. His PCP sent him back to the emergency room and his hemoglobin was 7.7. He was again transferred back to [facility]. Transfused and sent home. He has seen by gastroenterology, [facility], on July 01. He is to be started on a new "Mab" but he cannot remember the name of it. He returned to July 04, again through the emergency room with bright red blood per rectum. His hemoglobin was stable. He was off of his prednisone. And because of the prednisone taper felt like his rectal bleeding had increased. The case was discussed with [facility] gastroenterology, Dr. Chi, and it was recommended that he restart his steroids and back on mesalamine enemas. With his visit to the emergency room, prescriptions were called in but he did not pick them up. Because he was still having rectal bleeding his PCP sent him back to the emergency room again. He was admitted again 07/06 for blood transfusions. With this episode, he denies fevers, sweats, abdominal pain. He stopped taking his steroids for a week because of no refills and had to contact his GI MD office. He resumed them but by then he was bleeding again and hasn't stopped. In January he was 99.6 kg, in June 92 kg and today is 97Kg. As far as he knows he is only on prednisone and had managed to taper it down to 30 mg before he ran out. His GI MD did not refill the mesalamine. He's tired. Fatigued so he came to the ER and anemia to 5.8 found. He is due to see his GI MD on 08/20/18. History - Past Medical History Cardiovascular: reports: None Respiratory: reports: None Neuro: reports: None Endocrine/Autoimmune: reports: None GI: reports: Ulcerative colitis : reports: None HEENT: reports: None Psych: reports: ADD/ADHD, Other Musculoskeletal: reports: None Derm: reports: None MRSA Hx?: No - Past Surgical History General: reports: Colonoscopy, EGD, Other - Family & Social History Family History Comment/Other: Dad is in his 50s and has high blood pressure and heart disease. Mom is in her 50s and is completely healthy. He has 1 brother, 1 sister. No one has mental health issues, ulcerative colitis, thyroid, cancer, cardiovascular disease. He has no children Social History Notes: He has a high school education. He has not yet to be able to live independently as of yet. He did try and join a job core 2 years ago but because of emotional health issues he had to come home. He really does not like living at home. His plan was to go back to the job core on July 19. This delay with his ulcerative colitis and new diagnosis has left him really frustrated. He says he has never smoked, had no history of alcohol abuse. He has never tried cannabis, cocaine, heroin, LSD, or methamphetamines. - Substance History Use: Uses substance without health or social issues: NONE Abuse: Recurrent use of substance despite neg consequences: NONE Dependence: Experiences withdrawal or developed tolerances: NONE - POLST Patient has POLST: No POLST Status: Full Code Meds/Allgy - Home Medications Home Medications: Ambulatory Orders Medication Instructions Recorded Confirmed Clonidine HCl [Catapres] 0.2 mg PO QPM 01/11/18 08/14/18 Fluoxetine HCl [Prozac] 20 mg PO DAILY 01/11/18 08/14/18 risperiDONE [Risperdal] 1 mg PO QPM 01/11/18 08/14/18 Dextroamphetamine/Amphetamine 15 mg PO .DAILY AT 4PM 04/21/18 08/14/18 [Dextroamp-Amphet ER 20 mg Cap] Dextroamphetamine/Amphetamine 30 mg PO .DAILY AT 10AM 04/21/18 08/14/18 [Dextroamp-Amphet ER 30 mg Cap] predniSONE [Deltasone] 25 mg PO DAILY 08/14/18 08/14/18 - Allergies Allergies/Adverse Reactions: Allergies Allergy/AdvReac Type Severity Reaction Status Date / Time No Known Drug Allergies Allergy Verified 07/06/18 16:18 Prior Level of Functionality: He lives at home with his mother and father. Is independent with regards to activities of daily living. He can dress himself, feed himself, but is disabled with regards to getting gainful employment because of psychiatric disability and ulcerative colitis. When he needs to get places he either walks or, takes a bicycle, or has people drop them off. For instance he is getting someone to drop him off at his doctor visit on August 20. He does not use a cane, walker, or wheelchair. Exam - Vital Signs Reviewed Vital Signs: Yes Vital Signs: Vital Signs x48h Temp Pulse Resp BP Pulse Ox 08/14/18 13:35 36.7 C 115 H 18 125/79 100 - Physical Exam General Appearance: positive: No acute distress, Alert, Other (Monotonic, anhedonic, pale black male well-groomed, well-developed) Eyes Bilateral: positive: PERRL, EOMI ENT: positive: Pharynx nml Neck: positive: No JVD. negative: Stiff neck, Carotid bruit Respiratory: positive: Chest non-tender. negative: Wheezes, Rales, Rhonchi Cardiovascular: positive: Regular rate & rhythm. negative: Systolic murmur, Gallop/S4, Friction rub Peripheral Pulses: positive: 1+ Abdomen: positive: Non-tender, No organomegaly, Nml bowel sounds, No distention. negative: Guarding, Rebound Skin: positive: Warm, Dry Extremities: positive: Non-tender, Full ROM, No pedal edema Neurologic/Psychiatric: positive: Oriented x3, CN's nml (2-12), Motor nml. negative: Mood/affect nml (monotonic, anhedonic form of expression.) Conclusion/Plan - Problem List (1) Chronic blood loss anemia Conclusion/Plan: This is from chronic bloody rectal discharge. That in turn is from noncompliance with his medications for ulcerative colitis. Plan: +Observation status +Have social work investigate what his exact living situation is. Is it possible that someone else could be giving him his medications so he can stop being readmitted for an inflammatory bowel disease flare. +Type and cross for 4 units and transfuse +Resume his ulcerative colitis medications (2) Ulcerative colitis Conclusion/Plan: He will be resumed on his usual medical agents which he states is only steroids. His usual GI MD is Christopher Moore but he is off and Dr. William Mcmahan is micro paleontologist. He graciously reviewed the med records for me in their office. Last seen 07/15 and on steroid taper, omayraasa finished. work up ongoing for possible remicade or entyvio. Wanted to induce steroid remission with 40 mg prednisone and he is due to be seen 08/20 to see if they can start the biologics. He is to remain on the steroids. So I will resume 40 mg po daily fo prednisone. Qualifiers: Ulcerative colitis location: unspecified ulcerative colitis location Digestive disease complication type: with rectal bleeding Qualified Code(s): K51.911 - Ulcerative colitis, unspecified with rectal bleeding (3) Noncompliance with medication regimen Conclusion/Plan: I have asked social work to work with him and his family to figure out how we can do a work around. I would like to see him take his medications regularly. (4) JOS (acute kidney injury) Conclusion/Plan: for the first time his creatinine has bumped up. He is usually less than 1.0. Recheck in am. - Lab Results Fish Bones: 08/14/18 13:58 08/14/18 13:58 Core Measures - Anticipated LOS I expect patient to be DC'd or transferred within 96 hours.: Yes - DVT/VTE - Prophylaxis VTE/DVT Device ordered at admit?: Yes
[2018-08-14 14:58] LABS: BAND NEUTROPHILS % (MANUAL) 11 %; LYMPHOCYTES # (MANUAL) 1.8 10^3/uL (1.5-3.5); LYMPHOCYTES % (MANUAL) 15 %; METAMYELOCYTES % (MANUAL) 3 %; MONOCYTES # (MANUAL) 0.1 10^3/uL (0.0-1.0); MYELOCYTES % (MANUAL) 1 %; NEUTROPHILS # (MANUAL) 9.4 10^3/uL (1.5-6.6); NEUTROPHILS % (MANUAL) 69 %
[2018-08-14 15:03] LABS: PLATELET ESTIMATE, MANUAL NORMAL (130-450,000) (NORMAL)
[2018-08-14 15:04] LABS: DIFFERENTIAL COMMENT MANUAL DIFFERENTIAL
[2018-08-14] MEDS ORDERED: SODIUM CHLORIDE 0.9% 500 ML IV ONE (15:37)
[2018-08-14] MEDS ORDERED: diphenhydrAMINE 25 MG CAPSULE PO ONE ×2 (15:54→18:00)
[2018-08-14] MEDS: SODIUM CHLORIDE FLUSH 0.9% 10 ML SYRINGE IVP SCH ×2 (15:55→22:19)
[2018-08-14] MEDS ORDERED: risperiDONE 1 MG TABLET PO SCH (21:45)
[2018-08-14] MEDS ORDERED: cloNIDine 0.1 MG TABLET PO SCH (21:45)
[2018-08-14] MEDS ORDERED: LOPERAMIDE 2 MG CAPSULE PO PRN (23:13)
[2018-08-15] MEDS: SODIUM CHLORIDE FLUSH 0.9% 10 ML SYRINGE IVP SCH ×2 (00:17→10:24)
[2018-08-15] MEDS ORDERED: SODIUM CHLORIDE 0.9% 500 ML IV PRN (02:32)
[2018-08-15] MEDS ORDERED: predniSONE 20 MG TABLET PO SCH (08:00)
[2018-08-15 08:30] VITALS: BP 117/68
[2018-08-15] MEDS ORDERED: POLYETHYLENE GLYCOL 3350 17 GM PACKET PO SCH (09:00)
--- NOTE | 2018-08-15 09:01 | Discharge Plan ---
Discharge Plan Disposition: Home, Self Care Condition: Good Prescriptions: predniSONE [Deltasone] 40 mg PO DAILY #60 tablet Diet: Regular Activity Restrictions: Activity as Tolerated Shower Restrictions: No Driving Restrictions: No Additional Instructions or Follow Up instructions: You were admitted into the hospital because of rectal bleeding that had caused enough anemia that your hemoglobin was now down to 5.8 g. Normal for a person your age is 13. We think the cause of the bleeding was not taking your medicines for a few days. You have inflammatory bowel disease and your disease is very sensitive to being on medications or not. The week that you ran out of medications and were not able to take them most likely resulted and a surge of inflammation and then the bleeding. You were transfused 4 units of blood. I did speak to your gastroenterology group. They do want you to be on prednisone 40 mg a day. They will be seeing you on August 20 to decide if you are going to be on Entyvio or Remicade. We can only stressed to you that you must take your medications. This is now the second time that you come into the hospital because of a flareup of your disease secondary to not having your medications. Recheck out to your family, friends, and figure out a system that would allow you to be reminded to take your medicines every day. And if you need refills reach out for help in making those prescriptions happen. No Smoking: If you smoke, Please STOP! Call for help. Follow-up with: Jerri Villarreal ARNP [Primary Care Provider] -
[2018-08-15 10:10] LABS: HGB - HEMOGLOBIN 9.3 g/dL (14.0-18.0)
--- NOTE | 2018-08-15 23:30 | DISCHARGE SUMMARY ---
Physician: Dee Dee Alvarez MD DATE OF ADMISSION: 08/14/2018 DATE OF DISCHARGE: 08/15/2018 DISCHARGE DIAGNOSES 1. Chronic blood loss anemia. 2. Ulcerative colitis. 3. Noncompliance with medical regimen. 4. Acute kidney injury. DISCHARGE MEDICATIONS 1. Prednisone 40 mg p.o. daily. 2. Catapres 0.2 mg p.o. every evening. 3. Dextroamphetamine with amphetamine 20 mg capsule, 1 capsule daily at 4:00 p.m., and 2 capsules daily at 10:00 a.m. 4. Prozac 20 mg daily. 5. Risperdal 1 mg daily. 6. Prednisone 40 mg p.o. daily. PRINCIPAL PROCEDURE: Transfusion of 4 units of packed cells. HOSPITAL COURSE: The patient is a 23-year-old black male with ADD and autism. He takes medications for that and is compliant for those medications. He was diagnosed with ulcerative colitis earlier this year after presenting as several episodes of bright red blood per rectum. He is seen by [facility]. There has been a big disconnect with his ability to get medications, and some of it is due to the patient's noncompliance, but some of it is also lack of prior authorization for his medications when he goes to the pharmacy. When we spoke to the pharmacy, the patient does come in on a regular basis and does call on a regular basis to see if his medications are there. Unfortunately, his GI drugs for his ulcerative colitis are the ones that seemed to be missing. As such, he has not been on any definitive therapy other than mesalamine and prednisone this entire time. I will reach out to both his primary care provider office and [facility]. I can only stress so much that the patient needs to be on some type of management on a regular basis. It appears he is compliant with regard to at least attempting to corn picker his medicines. The loop that needs to be closed is the prior authorization for his medications. After transfusion of 4 units of packed cells, patient is discharged in stable condition. He is eating his breakfast. He has been afebrile, tolerated his stay here without any complications. PHYSICAL EXAMINATION VITAL SIGNS: At discharge, temperature is 36.6, pulse 105, blood pressure 117/68, respirations 18, 99% on room air. GENERAL: A young male, looks stated age, well groomed, well nourished. NECK: Supple. LUNGS: Clear. HEART: Regular rate and rhythm. ABDOMEN: Soft, nontender, no masses. Normal bowel sounds. EXTREMITIES: Without edema. DISCHARGE INSTRUCTIONS: [facility] did want him on prednisone 40 mg a day. He will see them in followup on 08/20/2018 to be evaluated for Entyvio and Remicade. Again, I can only stress that prior authorization must be in place, so he can corn picker the medications at the pharmacy. He will continue on prednisone until then. I have also asked him to see his primary care provider, Jerri Villarreal, in followup the next 2-3 weeks. TD: 08/15/2018 11:12 FROY
== END 2018-08-15 11:10 | disposition home or self-care (01) ==
LOC: ED 13:30 → MS2 14:50
PROVIDERS: ADMIT Specialist; ATTEND Specialist
DX: D50.0 Iron deficiency anemia secondary to blood loss (chronic) (principal); K51.011 Ulcerative (chronic) pancolitis with rectal bleeding; T38.0X6A Underdosing of glucocorticoids and synthetic analogues, initial encounter; T47.8X6A Underdosing of other agents primarily affecting gastrointestinal system, initial encounter; Z91.138 Patient's unintentional underdosing of medication regimen for other reason; N17.9 Acute kidney failure, unspecified; F84.0 Autistic disorder; F98.8 Other specified behavioral and emotional disorders with onset usually occurring in childhood and adolescence; Z86.19 Personal history of other infectious and parasitic diseases; Z79.899 Other long term (current) drug therapy
CPT/HCPCS: 36415; 36430; 80053; 83690; 85014; 85018; 85025; 85610; 85730; 86850; 86900; 86901; 86920; 96374; 99283; 99284; A9270; G0378; J7512; P9016

== ENCOUNTER 2018-08-31 20:29 | Outpatient (CLI) | payer MEDICAID | END 2018-08-31 20:30 | disposition critical access hospital (66) | LOC: EMS 20:29 | PROVIDERS: ATTEND Surgery | DX: R60.0 Localized edema (principal) | CPT/HCPCS: A0425; A0429; A0999 ==

== ENCOUNTER 2018-08-31 20:46 | Emergency (ER) | payer MEDICAID ==
[2018-08-31 21:56] LABS: BASOPHILS % (AUTO) 0.1 %; EOSINOPHILS # (AUTO) 0.1 10^3/uL (0.0-0.7); EOSINOPHILS % (AUTO) 1.2 %; HGB - HEMOGLOBIN 7.1 g/dL (14.0-18.0); LYMPHOCYTES # (AUTO) 0.6 10^3/uL (1.5-3.5); LYMPHOCYTES % (AUTO) 6.1 %; MEAN CORPUSCULAR HEMOGLOBIN 23.2 pg (27.0-31.0); MEAN CORPUSCULAR HGB CONC 32.1 g/dL (32.0-36.0); MEAN CORPUSCULAR VOLUME 72.1 fL (80.0-94.0); MEAN PLATELET VOLUME 6.9 fL (7.4-11.4); MONOCYTES # (AUTO) 1.2 10^3/uL (0.0-1.0); MONOCYTES % (AUTO) 11.7 %; NEUTROPHILS # (AUTO) 8.5 10^3/uL (1.5-6.6); NEUTROPHILS % (AUTO) 80.9 %; PLT - PLATELET COUNT 480 10^3/uL (130-450); RED BLOOD COUNT 3.08 10^6/uL (4.70-6.10); RED CELL DISTRIBUTION WIDTH 29.4 % (12.0-15.0); WHITE BLOOD COUNT 10.5 x10^3/uL (4.8-10.8)
[2018-08-31 22:08] LABS: ALBUMIN 2.3 g/dL (3.2-5.5); ALBUMIN/GLOBULIN RATIO 0.9 (1.0-2.2); BILIRUBIN,TOTAL 0.5 mg/dL (0.2-1.0); CALCIUM 7.8 mg/dL (8.5-10.3); CREATININE 1.1 mg/dL (0.6-1.2)
--- NOTE | 2018-08-31 22:21 | ED Physician Documentation ---
History of Present Illness - Stated complaint Stated Complaint: LEG SWELLING - Chief complaint Chief Complaint: General - History obtained from History obtained from: Patient, EMS - History of Present Illness Timing: How many days ago (2) - Additonal information Additional information: 23-year-old autistic male with ADHD has recently been hospitalized for exace rbation of ulcerative colitis which required a 4 unit transfusion. He has subsequently been seen by gastroenterology and treatment has begun on active C. difficile infection. He remains on 40 mg of prednisone per day and when he developed increased bleeding recently he increased to a third 20 mg at night. Over the past 2 days he has noticed extreme swelling of his entire body and some shortness of breath on any exertion. He denies any chest pain. He denies any shortness of breath at rest. Review of Systems Constitutional: reports: Fatigue. denies: Fever, Chills, Myalgias Eyes: denies: Decreased vision Ears: denies: Ear pain Nose: denies: Rhinorrhea / runny nose, Congestion Throat: denies: Sore throat Cardiac: denies: Chest pain / pressure, Palpitations Respiratory: reports: Dyspnea. denies: Cough GI: reports: Diarrhea, Bloody / black stool. denies: Abdominal Pain, Nausea, Vomiting : denies: Dysuria, Frequency Skin: denies: Rash Musculoskeletal: reports: Extremity pain, Extremity swelling. denies: Neck pain, Back pain Neurologic: reports: Generalized weakness. denies: Focal weakness, Numbness PD PAST MEDICAL HISTORY - Past Medical History Cardiovascular: None Respiratory: None Neuro: None Endocrine/Autoimmune: None GI: Ulcerative colitis : None HEENT: None Psych: ADD/ADHD, Other Musculoskeletal: None Derm: None - Past Surgical History Past Surgical History: Yes General: Colonoscopy, EGD, Other - Present Medications Home Medications: Ambulatory Orders Medication Instructions Recorded Confirmed Clonidine HCl [Catapres] 0.2 mg PO QPM 01/11/18 08/14/18 Fluoxetine HCl [Prozac] 20 mg PO DAILY 01/11/18 08/14/18 risperiDONE [Risperdal] 1 mg PO QPM 01/11/18 08/14/18 Dextroamphetamine/Amphetamine 30 mg PO .DAILY AT 10AM 04/21/18 08/14/18 [Dextroamp-Amphet ER 30 mg Cap] predniSONE [Deltasone] 40 mg PO DAILY #60 tablet 08/15/18 Prednisone 5 mg PO 08/31/18 Ranitidine HCl [Heartburn Relief] 150 mg PO 08/31/18 Vancomycin [Vancocin] 125 mg PO QID 08/31/18 08/31/18 - Allergies Allergies/Adverse Reactions: Allergies Allergy/AdvReac Type Severity Reaction Status Date / Time No Known Drug Allergies Allergy Verified 07/06/18 16:18 - Social History Does the pt smoke?: No Smoking Status: Never smoker Does the pt drink ETOH?: No Does the pt have substance abuse?: No - Immunizations Immunizations are current?: Yes - POLST Patient has POLST: No POLST Status: Full Code PD ED PE NORMAL - Vitals Vital signs reviewed: Yes (hypertensive ) - General General: Alert and oriented X 3, Well developed/nourished, Other (mild tachypnea at rest with talking ) - HEENT HEENT: Atraumatic, PERRL - Neck Neck: Supple, no meningeal sign - Cardiac Cardiac: RRR, No murmur - Respiratory Respiratory: No respiratory distress, Clear bilaterally - Abdomen Abdomen: Soft, Non tender - Back Back: No CVA TTP, No spinal TTP - Derm Derm: Normal color, Warm and dry, No rash - Extremities Extremities: No deformity, Other (marked doughy pitting edema to bilateral LE and to the hands. ) - Neuro Neuro: Alert and oriented X 3, manager urology 2-12 intact, No motor deficit, No sensory deficit, Normal speech Eye Opening: Spontaneous Motor: Obeys Commands Verbal: Oriented GCS Score: 15 - Psych Psych: Normal mood, Normal affect Results - Vitals Vitals: Vital Signs - 24 hr 08/31/18 08/31/18 08/31/18 20:59 22:20 23:10 Temperature Heart Rate 93 98 100 Respiratory 15 17 18 Rate Blood Pressure 133/86 H 133/91 H 124/91 H O2 Saturation 99 100 09/01/18 09/01/18 09/01/18 00:10 01:22 01:43 Temperature 37 C 36.9 C Heart Rate 95 86 89 Respiratory 16 22 18 Rate Blood Pressure 132/89 H 121/76 125/83 H O2 Saturation 98 09/01/18 09/01/18 09/01/18 02:17 03:05 03:28 Temperature 36.8 C Heart Rate 87 88 78 Respiratory 16 16 18 Rate Blood Pressure 112/79 106/64 111/75 O2 Saturation 97 97 09/01/18 09/01/18 09/01/18 03:47 03:53 04:04 Temperature 36.8 C 36.8 C 36.8 C Heart Rate 79 77 83 Respiratory 17 17 19 Rate Blood Pressure 111/66 109/73 110/67 O2 Saturation 09/01/18 09/01/18 09/01/18 05:24 06:35 06:58 Temperature 36.7 C Heart Rate 75 84 142 H Respiratory 15 16 Rate Blood Pressure 114/69 109/69 O2 Saturation 97 Oxygen O2 Source Room air - EKG (time done) 2142 Rate: Rate (enter#) (86) Rhythm: NSR Ischemia: Q waves (lateral ) Compare to prior EKG: Changed from prior EKG (SPT 07-06-18 rate has decreased) Computer interpretation: Agree with computer - Labs Labs: Laboratory Tests 08/31/18 08/31/18 08/31/18 21:45 21:45 21:45 WBC 10.5 RBC 3.08 L Hgb 7.1 L Hct 22.2 L MCV 72.1 L MCH 23.2 L MCHC 32.1 RDW 29.4 H Plt Count 480 H MPV 6.9 L Neut # (Auto) 8.5 H Lymph # (Auto) 0.6 L [place] # (Auto) 1.2 H Eos # (Auto) 0.1 Baso # (Auto) 0.0 Absolute Nucleated RBC 0.01 Nucleated RBC % 0.1 Manual Slide Review Indicated Platelet Estimate INCREASED (>450,000) Platelet Morphology NORMAL APPEARANCE RBC Morph Micro Appear 1+ POLYCHROMASIA Sodium 134 L Potassium 4.0 Chloride 102 Carbon Dioxide 28 Anion Gap 4.0 L BUN 15 Creatinine 1.1 Estimated GFR (MDRD) 82 L Glucose 103 H Calcium 7.8 L Total Bilirubin 0.5 AST 17 ALT 20 Alkaline Phosphatase 37 L Troponin I < 0.04 B-Natriuretic Peptide Total Protein 5.0 L Albumin 2.3 L Globulin 2.7 Albumin/Globulin Ratio 0.9 L Lipase 31 Blood Type Antibody Screen Crossmatch IS Only 08/31/18 08/31/18 09/01/18 21:45 22:45 07:21 WBC RBC Hgb 8.2 L Hct 24.3 L MCV MCH MCHC RDW Plt Count MPV Neut # (Auto) Lymph # (Auto) [place] # (Auto) Eos # (Auto) Baso # (Auto) Absolute Nucleated RBC Nucleated RBC % Manual Slide Review Platelet Estimate Platelet Morphology RBC Morph Micro Appear Sodium Potassium Chloride Carbon Dioxide Anion Gap BUN Creatinine Estimated GFR (MDRD) Glucose Calcium Total Bilirubin AST ALT Alkaline Phosphatase Troponin I B-Natriuretic Peptide 137 H Total Protein Albumin Globulin Albumin/Globulin Ratio Lipase Blood Type O POSITIVE Antibody Screen NEGATIVE Crossmatch IS Only See Detail Procedures - IVC sono (time) 2124 Bedside IVC sono: IVC measures (cm) (1.12), IVC collapsed c insp (cm) (0.44), Dehydration PD MEDICAL DECISION MAKING - ED course Complexity details: reviewed old records, reviewed results, re-evaluated patient, considered differential, d/w patient, d/w call center support consultant (Dee Dee Alvarez hospitalist here. We have no beds. This patient will require several days of treatment and will need to be transferred. She recommends treatment with blood and diuretic. ) ED course: 23-year-old autistic male with ADHD has ulcerative colitis and this is recently been treated in the hospital and required a 4 unit transfusion. Since that time he has gone to follow-up with gastroenterology has been placed on some vancomycin on the 12th of this month for C. difficile infection and he is continued on 60 mg of prednisone daily since the 12th of this month. He now has anasarca and symptomatic anemia. admission to the hospital for transfusion and diuresis is sought and there are no beds available at [facility]. [facility] is contacted in the case and advise they would transfer this patient from their hospital. He is kept in the ED overnight with a transfusion begun and IV lasix. He is transfused 2 units of rbc's and repeat H&H raises from 7.1/22.2 to 8.2/24.3. He continues to have orthostatic pulse increase and weak legs on standing. He feels he is doing poorly at home. [facility] in [place] is consu lted in the case and Dr. Orellana is kind enough to accept the patient in transfer. Departure - Departure Disposition: 02 Transfer Acute Care Hosp Clinical Impression: Symptomatic anemia, Anasarca
[2018-08-31 22:25] LABS: PLATELET ESTIMATE, MANUAL INCREASED (>450,000) (NORMAL); PLATELET MORPHOLOGY NORMAL APPEARANCE (NORMAL)
[2018-09-01] MEDS ORDERED: ACETAMINOPHEN 325 MG TABLET PO STA (00:37)
[2018-09-01] MEDS ORDERED: diphenhydrAMINE INJ 50 MG/ML VIAL IVP STA (00:37)
[2018-09-01] MEDS ORDERED: FUROSEMIDE 40 MG/4 ML VIAL IVP STA (00:52)
[2018-09-01 07:30] LABS: HGB - HEMOGLOBIN 8.2 g/dL (14.0-18.0)
[2018-09-01 12:20] VITALS: BP 117/86
== END 2018-09-01 13:30 | disposition short-term general hospital (02) ==
LOC: EDUNIT# → ED 20:46
DX: A04.72 Enterocolitis due to Clostridium difficile, not specified as recurrent (principal); D64.9 Anemia, unspecified; R60.1 Generalized edema; E86.0 Dehydration
CPT/HCPCS: 36415; 80053; 83690; 83880; 84484; 85014; 85018; 85025; 86850; 86900; 86901; 86920; 93005; 96374; 96375; 99284; 99285; A9270; J1200; P9016

== ENCOUNTER 2018-09-01 13:34 | Outpatient (CLI) | payer MEDICAID | END 2018-09-01 13:35 | disposition short-term general hospital (02) | LOC: EMS 13:34 | PROVIDERS: ATTEND Surgery | DX: K92.2 Gastrointestinal hemorrhage, unspecified (principal) | CPT/HCPCS: A0425; A0426; A0999 ==

== ENCOUNTER 2018-10-07 10:40 | Outpatient (CLI) | payer MEDICAID ==
[2018-10-07 13:01] LABS: BASOPHILS % (AUTO) 0.6 %; EOSINOPHILS % (AUTO) 0.6 %; HGB - HEMOGLOBIN 10.1 g/dL (14.0-18.0); LYMPHOCYTES # (AUTO) 0.5 10^3/uL (1.5-3.5); LYMPHOCYTES % (AUTO) 6.8 %; MEAN CORPUSCULAR HEMOGLOBIN 28.8 pg (27.0-31.0); MEAN CORPUSCULAR HGB CONC 34.2 g/dL (32.0-36.0); MEAN CORPUSCULAR VOLUME 84.2 fL (80.0-94.0); MEAN PLATELET VOLUME 7.4 fL (7.4-11.4); MONOCYTES # (AUTO) 1.3 10^3/uL (0.0-1.0); MONOCYTES % (AUTO) 18.4 %; NEUTROPHILS % (AUTO) 73.6 %; PLT - PLATELET COUNT 342 10^3/uL (130-450); RED BLOOD COUNT 3.52 10^6/uL (4.70-6.10); RED CELL DISTRIBUTION WIDTH 19.5 % (12.0-15.0); WHITE BLOOD COUNT 6.8 x10^3/uL (4.8-10.8)
[2018-10-07 13:22] LABS: RBC MORPHOLOGY (MULTIPLE) 1+ MICROCYTOSIS (NORMAL)
== END 2018-10-07 23:59 | disposition home or self-care (01) ==
LOC: LAB.N 10:40
PROVIDERS: ATTEND Internal Medicine
DX: K92.1 Melena (principal)
CPT/HCPCS: 36415; 85025

== ENCOUNTER 2018-12-06 09:05 | Emergency (ER) | payer MEDICAID ==
[2018-12-06 09:45] LABS: BASOPHILS % (AUTO) 0.3 %; EOSINOPHILS % (AUTO) 1.1 %; HGB - HEMOGLOBIN 11.4 g/dL (14.0-18.0); LYMPHOCYTES % (AUTO) 16.7 %; MEAN CORPUSCULAR HEMOGLOBIN 26.8 pg (27.0-31.0); MEAN CORPUSCULAR HGB CONC 33.4 g/dL (32.0-36.0); MEAN CORPUSCULAR VOLUME 80.2 fL (80.0-94.0); MEAN PLATELET VOLUME 7.4 fL (7.4-11.4); NEUTROPHILS % (AUTO) 64.9 %; PLT - PLATELET COUNT 559 10^3/uL (130-450); RED BLOOD COUNT 4.24 10^6/uL (4.70-6.10); RED CELL DISTRIBUTION WIDTH 17.2 % (12.0-15.0)
[2018-12-06 09:52] LABS: ABNORMAL LYMPHS % (MANUAL) 0 %
[2018-12-06 09:53] LABS: INR 1.3 (0.8-1.2); PT - PROTHROMBIN TIME 14.8 secs (9.9-12.6)
[2018-12-06 09:55] LABS: ALBUMIN 1.8 g/dL (3.2-5.5); ALBUMIN/GLOBULIN RATIO 0.6 (1.0-2.2); BILIRUBIN,TOTAL 0.9 mg/dL (0.2-1.0); CALCIUM 7.3 mg/dL (8.5-10.3); CREATININE 1.5 mg/dL (0.6-1.2); TOTAL PROTEIN 4.7 g/dL (6.7-8.2)
[2018-12-06 10:00] LABS: PARTIAL THROMBOPLASTIN TIME 25.9 secs (24.9-33.3)
[2018-12-06 10:26] LABS: BAND NEUTROPHILS % (MANUAL) 16 %; BASOPHILS # (MANUAL) 0.2 10^3/uL (0-0.1); BASOPHILS % (MANUAL) 1 %; EOSINOPHILS # (MANUAL) 0.3 10^3/uL (0-0.7); LYMPHOCYTES # (MANUAL) 4.6 10^3/uL (1.5-3.5); LYMPHOCYTES % (MANUAL) 18 %; NEUTROPHILS # (MANUAL) 9.9 10^3/uL (1.5-6.6); NEUTROPHILS % (MANUAL) 42 %
[2018-12-06 10:29] LABS: DIFFERENTIAL COMMENT MANUAL DIFFERENTIAL
[2018-12-06] MEDS ORDERED: SODIUM CHLORIDE 0.9% 1,000 ML IV ONE (10:34)
[2018-12-06] MEDS ORDERED: POTASSIUM CHLORIDE 20 MEQ TABLET PO STA (10:34)
[2018-12-06] MEDS ORDERED: POTASSIUM CHLOR 10 MEQ/100 ML 10 MEQ/100 ML BAG IV ONE (10:34)
[2018-12-06] MEDS ORDERED: azaTHIOprine 50 MG TABLET PO STA (11:40)
[2018-12-06 12:08] VITALS: BP 104/71
--- NOTE | 2018-12-06 12:15 | ED Physician Documentation ---
PD HPI GI BLEED - Stated complaint Stated Complaint: BLOOD IN STOOL - Chief complaint Chief Complaint: Abd Pain - History obtained from History obtained from: Patient - History of Present Illness Timing - onset: How many weeks ago (several) Timing - details: Still present Associated symptoms: Maroon stool Contributing factors: Other (History of ulcerative colitis, C. difficile colitis, and 2-1/2 weeks status post fecal transplant.) - Additional information Additional information: The patient is a 23-year-old male with history of ulcerative colitis, C. difficile colitis, status post fecal transplant 2 and half weeks ago, who presents with bloody stool that is been a daily occurrence for the past 2 weeks, with increasing frequency of bloody stools over the past few days. He denies abdominal pain. He reports nausea with vomiting twice earlier today. He reports lightheadedness. He denies fever or dysuria. He was previously treated with prednisone, but stopped the medication on his own about one month ago, prior to the fecal transplant. He is scheduled to see his dean of admissions tomorrow to institute treatment with azathioprine and Remicade. Review of Systems Constitutional: reports: Fatigue, Other (lightheaded). denies: Fever Ears: denies: Tinnitus/ringing Nose: denies: Congestion Throat: denies: Sore throat Cardiac: denies: Chest pain / pressure, Palpitations Respiratory: denies: Dyspnea, Cough GI: reports: Nausea, Vomiting, Bloody / black stool. denies: Abdominal Pain : denies: Dysuria Skin: reports: Rash (Chronic facial rash.) Musculoskeletal: denies: Back pain, Extremity swelling Neurologic: denies: Focal weakness, Numbness, Headache PD PAST MEDICAL HISTORY - Past Medical History Cardiovascular: None Respiratory: None Neuro: None Endocrine/Autoimmune: None GI: C.difficile, Ulcerative colitis : None HEENT: None Psych: ADD/ADHD, Other Musculoskeletal: None Derm: None - Past Surgical History Past Surgical History: Yes General: Colonoscopy, EGD, Other - Present Medications Home Medications: Ambulatory Orders Medication Instructions Recorded Confirmed Clonidine HCl [Catapres] 0.2 mg PO QPM 01/11/18 08/14/18 risperiDONE [Risperdal] 1 mg PO QPM 01/11/18 08/14/18 Dextroamphetamine/Amphetamine 30 mg PO .DAILY AT 10AM 04/21/18 08/14/18 [Dextroamp-Amphet ER 30 mg Cap] Mesalamine 10/16/18 10/16/18 Ondansetron Odt [Zofran] 4 mg TL Q6H PRN #10 tablet 10/16/18 - Allergies Allergies/Adverse Reactions: Allergies Allergy/AdvReac Type Severity Reaction Status Date / Time No Known Drug Allergies Allergy Verified 12/06/18 09:16 - Social History Does the pt smoke?: No Smoking Status: Never smoker Does the pt drink ETOH?: No Does the pt have substance abuse?: No - Immunizations Immunizations are current?: Yes - POLST Patient has POLST: No POLST Status: Full Code PD ED PE NORMAL - Vitals Vital signs reviewed: Yes (normal) - General General: Alert and oriented X 3, Well developed/nourished - HEENT HEENT: Atraumatic, Pharynx benign - Neck Neck: No adenopathy, No JVD - Cardiac Cardiac: RRR - Respiratory Respiratory: No respiratory distress, Clear bilaterally - Abdomen Abdomen: Soft, Non tender - Male Male : Other (Rectal exam reveals maroon, heme-positive stool.) - Back Back: No CVA TTP - Derm Derm: Other (Erythematous rash on the maxillary prominences of the patient's face. (The patient states this is improved from previous extent of his rash.)) - Extremities Extremities: No edema, No calf tenderness / cord - Neuro Neuro: Alert and oriented X 3, No motor deficit, No sensory deficit Results - Vitals Vitals: Vital Signs - 24 hr 12/06/18 12:07 Heart Rate 103 H Respiratory 14 Rate Blood Pressure 104/71 O2 Saturation 100 Oxygen O2 Source Room air - Labs Labs: Laboratory Tests 12/06/18 12/06/18 12/06/18 09:30 09:30 09:30 WBC 17.0 H RBC 4.24 L Hgb 11.4 L Hct 34.0 L MCV 80.2 MCH 26.8 L MCHC 33.4 RDW 17.2 H Plt Count 559 H MPV 7.4 Neut # (Auto) Not Reportable Lymph # (Auto) Not Reportable [place] # (Auto) Not Reportable Eos # (Auto) Not Reportable Baso # (Auto) Not Reportable Absolute Nucleated RBC Not Reportable Total Counted 100 Band Neuts % (Manual) 16 H Reactive Lymphs % (Man) 9 Abnorm Lymph % (Manual) 0 Nucleated RBC % Not Reportable Neutrophils # (Manual) 9.9 H Lymphocytes # (Manual) 4.6 H Monocytes # (Manual) 2.0 H Eosinophils # (Manual) 0.3 Basophils # (Manual) 0.2 H Differential Comment MANUAL DIFFERENTIAL RBC Morph Micro Appear 1+ TARGET CELLS PT 14.8 H INR 1.3 H APTT 25.9 Sodium Potassium Chloride Carbon Dioxide Anion Gap BUN Creatinine Estimated GFR (MDRD) Glucose Calcium Total Bilirubin AST ALT Alkaline Phosphatase Total Protein Albumin Globulin Albumin/Globulin Ratio Lipase Blood Type O POSITIVE Antibody Screen NEGATIVE 12/06/18 09:30 WBC RBC Hgb Hct MCV MCH MCHC RDW Plt Count MPV Neut # (Auto) Lymph # (Auto) [place] # (Auto) Eos # (Auto) Baso # (Auto) Absolute Nucleated RBC Total Counted Band Neuts % (Manual) Reactive Lymphs % (Man) Abnorm Lymph % (Manual) Nucleated RBC % Neutrophils # (Manual) Lymphocytes # (Manual) Monocytes # (Manual) Eosinophils # (Manual) Basophils # (Manual) Differential Comment RBC Morph Micro Appear PT INR APTT Sodium 132 L Potassium 2.6 L Chloride 95 L Carbon Dioxide 26 Anion Gap 11.0 BUN 12 Creatinine 1.5 H Estimated GFR (MDRD) 57 L Glucose 116 H Calcium 7.3 L Total Bilirubin 0.9 AST 29 ALT 11 Alkaline Phosphatase 85 Total Protein 4.7 L Albumin 1.8 L Globulin 2.9 Albumin/Globulin Ratio 0.6 L Lipase 15 L Blood Type Antibody Screen PD MEDICAL DECISION MAKING - ED course Complexity details: reviewed old records, reviewed results, re-evaluated patient, considered differential, d/w patient, d/w job service consultant ED course: The patient's presentation is significant for GI bleed, 2 and half weeks status post fecal transplant for C. difficile. He also has history of ulcerative colitis for which he was previously treated with prednisone, but which he stopped about one month ago. His hemoglobin and hematocrit are is presently adequate at 11.4 and 34.0. His white blood cell count is elevated at 17.0. His chemistry panel reveals hypokalemia with potassium of 2.6, which may also contribute to the patient's feeling of weakness. I discussed his condition with the child center assistant to his dean of admissions, Dr. Moore. She advises that the patient should be started on azathioprine, and follow-up with Dr. Moore tomorrow as scheduled. Treatment in the emergency department included administration of azathioprine, 50 mg orally, potassium 20 mEq orally, and 10 mEq IV, and normal saline 1 L IV. I discussed with him the importance of follow-up with his dean of admissions tomorrow, as well as potentially worrisome signs or symptoms that should prompt reevaluation in the emergency department. Departure - Departure Disposition: 01 Home, Self Care Clinical Impression: S/P fecal transplant, Hypokalemia GI bleed Qualifiers: GI bleed type/associated pathology: unspecified gastrointestinal hemorrhage type Qualified Code(s): K92.2 - Gastrointestinal hemorrhage, unspecified Condition: Stable Instructions: ED Hematochezia Stable Follow-Up: Jerri Villarreal ARNP [Primary Care Provider] - Christopher Moore MD [Provider Admit Priv/Credential] - Comments: Follow-up with Dr. Moore tomorrow as planned. Return to the emergency department if you develop increasing GI bleeding, progressive lightheadedness, or otherwise worsening symptoms. Discharge Date/Time: 12/06/18 12:44
== END 2018-12-06 12:44 | disposition home or self-care (01) ==
LOC: ED 09:05
DX: E87.6 Hypokalemia (principal); K92.1 Melena; R21 Rash and other nonspecific skin eruption; Z98.890 Other specified postprocedural states
CPT/HCPCS: 36415; 80053; 83690; 85025; 85610; 85730; 86850; 86900; 86901; 96365; 99283

== ENCOUNTER 2018-12-31 08:00 | Outpatient (CLI) | payer MEDICAID ==
[2018-12-31 18:37] LABS: BASOPHILS % (AUTO) 0.7 %; EOSINOPHILS % (AUTO) 0.9 %; HGB - HEMOGLOBIN 9.3 g/dL (14.0-18.0); LYMPHOCYTES % (AUTO) 20.5 %; MEAN CORPUSCULAR HEMOGLOBIN 25.3 pg (27.0-31.0); MEAN CORPUSCULAR HGB CONC 31.6 g/dL (32.0-36.0); MEAN PLATELET VOLUME 7.6 fL (7.4-11.4); MONOCYTES # (AUTO) 0.7 10^3/uL (0.0-1.0); MONOCYTES % (AUTO) 15.3 %; NEUTROPHILS # (AUTO) 3.1 10^3/uL (1.5-6.6); NEUTROPHILS % (AUTO) 62.6 %; PLT - PLATELET COUNT 516 10^3/uL (130-450); RED BLOOD COUNT 3.68 10^6/uL (4.70-6.10); RED CELL DISTRIBUTION WIDTH 18.3 % (12.0-15.0); WHITE BLOOD COUNT 4.9 x10^3/uL (4.8-10.8)
[2018-12-31 19:26] LABS: ALBUMIN 1.6 g/dL (3.2-5.5); ALBUMIN/GLOBULIN RATIO 0.6 (1.0-2.2); BILIRUBIN,TOTAL 0.8 mg/dL (0.2-1.0); CALCIUM 7.5 mg/dL (8.5-10.3); CREATININE 1.4 mg/dL (0.6-1.2); TOTAL PROTEIN 4.1 g/dL (6.7-8.2)
== END 2018-12-31 23:59 | disposition home or self-care (01) ==
LOC: LAB.N 08:00
PROVIDERS: ATTEND Internal Medicine
DX: R11.2 Nausea with vomiting, unspecified (principal); R19.7 Diarrhea, unspecified; K51.90 Ulcerative colitis, unspecified, without complications
CPT/HCPCS: 36415; 80053; 85025; 87493

== ENCOUNTER 2019-01-06 13:23 | Outpatient (CLI) | payer MEDICAID ==
[2019-01-06 18:58] LABS: BASOPHILS # (AUTO) 0.1 10^3/uL (0.0-0.1); BASOPHILS % (AUTO) 1.4 %; EOSINOPHILS % (AUTO) 0.2 %; HGB - HEMOGLOBIN 8.9 g/dL (14.0-18.0); LYMPHOCYTES # (AUTO) 1.3 10^3/uL (1.5-3.5); LYMPHOCYTES % (AUTO) 30.5 %; MEAN CORPUSCULAR HEMOGLOBIN 25.2 pg (27.0-31.0); MEAN CORPUSCULAR HGB CONC 32.3 g/dL (32.0-36.0); MEAN CORPUSCULAR VOLUME 78.3 fL (80.0-94.0); MEAN PLATELET VOLUME 7.4 fL (7.4-11.4); MONOCYTES # (AUTO) 0.4 10^3/uL (0.0-1.0); MONOCYTES % (AUTO) 9.5 %; NEUTROPHILS # (AUTO) 2.5 10^3/uL (1.5-6.6); NEUTROPHILS % (AUTO) 58.4 %; PLT - PLATELET COUNT 412 10^3/uL (130-450); RED BLOOD COUNT 3.54 10^6/uL (4.70-6.10); RED CELL DISTRIBUTION WIDTH 18.5 % (12.0-15.0); WHITE BLOOD COUNT 4.3 x10^3/uL (4.8-10.8)
[2019-01-06 19:03] LABS: BILIRUBIN,URINE NEGATIVE (NEGATIVE); GLUCOSE, URINE (UA) NEGATIVE (NEGATIVE); KETONES,URINE (UA) NEGATIVE (NEGATIVE); LEUKOCYTE ESTERASE, URINE NEGATIVE (NEGATIVE); NITRITE,URINE NEGATIVE (NEGATIVE); OCCULT BLOOD,URINE MODERATE (NEGATIVE); PROTEIN,URINE NEGATIVE (NEGATIVE); UROBILINOGEN,URINE 0.2 (NORMAL) E.U./dL (NORMAL)
[2019-01-06 19:04] LABS: CLARITY,URINE CLEAR (CLEAR)
[2019-01-06 19:21] LABS: ALBUMIN 1.5 g/dL (3.2-5.5); ALBUMIN/GLOBULIN RATIO 0.7 (1.0-2.2); BILIRUBIN,TOTAL 0.6 mg/dL (0.2-1.0); CALCIUM 7.4 mg/dL (8.5-10.3); TOTAL PROTEIN 3.8 g/dL (6.7-8.2)
== END 2019-01-06 13:24 | disposition home or self-care (01) ==
LOC: LAB.N 13:23
PROVIDERS: ATTEND Internal Medicine
DX: R11.2 Nausea with vomiting, unspecified (principal); R19.7 Diarrhea, unspecified; K51.90 Ulcerative colitis, unspecified, without complications
CPT/HCPCS: 36415; 80053; 81003; 85025

== ENCOUNTER 2019-11-29 11:13 | Outpatient (CLI) | payer MEDICAID ==
[2019-11-29 18:43] LABS: BASOPHILS % (AUTO) 0.9 %; EOSINOPHILS # (AUTO) 0.1 10^3/uL (0.0-0.7); EOSINOPHILS % (AUTO) 2.2 %; HGB - HEMOGLOBIN 14.1 g/dL (14.0-18.0); LYMPHOCYTES # (AUTO) 0.8 10^3/uL (1.5-3.5); LYMPHOCYTES % (AUTO) 17.6 %; MEAN CORPUSCULAR HGB CONC 33.5 g/dL (32.0-36.0); MEAN CORPUSCULAR VOLUME 86.4 fL (80.0-94.0); MEAN PLATELET VOLUME 11.2 fL (7.4-11.4); MONOCYTES # (AUTO) 0.9 10^3/uL (0.0-1.0); MONOCYTES % (AUTO) 18.9 %; NEUTROPHILS # (AUTO) 2.7 10^3/uL (1.5-6.6); NEUTROPHILS % (AUTO) 60.2 %; PLT - PLATELET COUNT 204 10^3/uL (130-450); RED BLOOD COUNT 4.87 10^6/uL (4.70-6.10); RED CELL DISTRIBUTION WIDTH 13.1 % (12.0-15.0); WHITE BLOOD COUNT 4.5 x10^3/uL (4.8-10.8)
[2019-11-29 19:15] LABS: ALBUMIN 4.2 g/dL (3.2-5.5); ALBUMIN/GLOBULIN RATIO 1.7 (1.0-2.2); ALKALINE PHOSPHATASE 62 IU/L (42-121); ALT ALANINE AMINOTRANSFERASE 17 IU/L (10-60); AST ASPARTATE AMINOTRANSFERASE 22 IU/L (10-42); BILIRUBIN,TOTAL 1.5 mg/dL (0.2-1.0); BUN - BLOOD UREA NITROGEN 14 mg/dL (6-20); CALCIUM 9.1 mg/dL (8.5-10.3); CARBON DIOXIDE - CO2 29 mmol/L (21-32); CHLORIDE 101 mmol/L (101-111); CHOL/HDL RATIO 3.6 (<5.0); CHOLESTEROL 153 mg/dL; CREATININE 0.9 mg/dL (0.6-1.2); GFR - MDRD 103 (>89); GLUCOSE 86 mg/dL (70-100); HDL CHOLESTEROL 43 mg/dL; LDL CHOLESTEROL,CALCULATED 91 mg/dL; LDL/HDL RATIO 2.1 (<3.6); SODIUM 137 mmol/L (135-145); TOTAL PROTEIN 6.7 g/dL (6.7-8.2); VLDL CHOLESTEROL 19 mg/dL
== END 2019-11-29 23:59 | disposition home or self-care (01) ==
LOC: LAB.N 11:13
PROVIDERS: ATTEND Nurse Practitioner Gerontology
DX: Z00.00 Encounter for general adult medical examination without abnormal findings (principal); Z79.899 Other long term (current) drug therapy
CPT/HCPCS: 36415; 80053; 80061; 83721; 84443; 85025

== ENCOUNTER 2020-01-30 08:00 | Outpatient (CLI) | payer MEDICAID ==
[2020-01-30 18:32] LABS: BASOPHILS # (AUTO) 0.1 10^3/uL (0.0-0.1); EOSINOPHILS # (AUTO) 0.2 10^3/uL (0.0-0.7); EOSINOPHILS % (AUTO) 3.4 %; HGB - HEMOGLOBIN 13.6 g/dL (14.0-18.0); LYMPHOCYTES # (AUTO) 0.8 10^3/uL (1.5-3.5); LYMPHOCYTES % (AUTO) 16.7 %; MEAN CORPUSCULAR HEMOGLOBIN 29.4 pg (27.0-31.0); MEAN CORPUSCULAR HGB CONC 34.3 g/dL (32.0-36.0); MEAN CORPUSCULAR VOLUME 85.7 fL (80.0-94.0); MEAN PLATELET VOLUME 10.8 fL (7.4-11.4); MONOCYTES # (AUTO) 0.7 10^3/uL (0.0-1.0); MONOCYTES % (AUTO) 14.5 %; NEUTROPHILS # (AUTO) 3.2 10^3/uL (1.5-6.6); PLT - PLATELET COUNT 254 10^3/uL (130-450); RED BLOOD COUNT 4.62 10^6/uL (4.70-6.10); RED CELL DISTRIBUTION WIDTH 13.7 % (12.0-15.0)
== END 2020-01-30 23:59 | disposition home or self-care (01) ==
LOC: LAB.N 08:00
PROVIDERS: ATTEND Nurse Practitioner Gerontology
DX: D64.9 Anemia, unspecified (principal); R00.0 Tachycardia, unspecified
CPT/HCPCS: 36415; 85025

== ENCOUNTER 2020-02-01 08:00 | Outpatient (CLI) | payer MEDICAID ==
[2020-02-01 17:58] LABS: BASOPHILS # (AUTO) 0.1 10^3/uL (0.0-0.1); EOSINOPHILS # (AUTO) 0.1 10^3/uL (0.0-0.7); EOSINOPHILS % (AUTO) 1.5 %; HGB - HEMOGLOBIN 13.1 g/dL (14.0-18.0); MEAN CORPUSCULAR HEMOGLOBIN 28.1 pg (27.0-31.0); MEAN CORPUSCULAR HGB CONC 32.8 g/dL (32.0-36.0); MEAN CORPUSCULAR VOLUME 85.8 fL (80.0-94.0); MEAN PLATELET VOLUME 11.1 fL (7.4-11.4); MONOCYTES # (AUTO) 0.7 10^3/uL (0.0-1.0); MONOCYTES % (AUTO) 13.9 %; NEUTROPHILS # (AUTO) 3.4 10^3/uL (1.5-6.6); NEUTROPHILS % (AUTO) 64.4 %; PLT - PLATELET COUNT 247 10^3/uL (130-450); RED BLOOD COUNT 4.66 10^6/uL (4.70-6.10); RED CELL DISTRIBUTION WIDTH 13.7 % (12.0-15.0); WHITE BLOOD COUNT 5.3 x10^3/uL (4.8-10.8)
[2020-02-01 18:01] LABS: ALBUMIN/GLOBULIN RATIO 1.7 (1.0-2.2); BILIRUBIN,TOTAL 0.9 mg/dL (0.2-1.0); CALCIUM 8.8 mg/dL (8.5-10.3); CREATININE 0.9 mg/dL (0.6-1.2); TOTAL PROTEIN 6.4 g/dL (6.7-8.2)
== END 2020-02-01 23:59 | disposition home or self-care (01) ==
LOC: LAB.N 08:00
PROVIDERS: ATTEND Internal Medicine
DX: K51.90 Ulcerative colitis, unspecified, without complications (principal)
CPT/HCPCS: 36415; 80053; 85025

== ENCOUNTER 2020-08-31 10:55 | Outpatient (CLI) | payer MEDICAID | END 2020-08-31 10:56 | disposition home or self-care (01) | LOC: COV 10:55 | PROVIDERS: ATTEND Family Medicine | DX: R53.83 Other fatigue (principal); Z20.828 Contact with and (suspected) exposure to other viral communicable diseases ==

== ENCOUNTER 2020-10-23 15:09 | Outpatient (CLI) | payer MEDICAID | END 2020-10-23 23:59 | LOC: LAB.WCP 15:09 | PROVIDERS: ATTEND Physician Assistant | DX: E55.9 Vitamin D deficiency, unspecified (principal); Z79.899 Other long term (current) drug therapy; R53.83 Other fatigue | CPT/HCPCS: 36415; 82306; 82607; 84443 ==

== ENCOUNTER 2021-09-11 10:22 | Outpatient (CLI) | payer MEDICAID ==
[2021-09-11 12:13] LABS: BASOPHILS % (AUTO) 0.9 %; EOSINOPHILS # (AUTO) 0.2 10^3/uL (0.0-0.7); EOSINOPHILS % (AUTO) 3.3 %; HCT - HEMATOCRIT 42.2 % (42.0-52.0); HGB - HEMOGLOBIN 14.4 g/dL (14.0-18.0); LYMPHOCYTES % (AUTO) 21.5 %; MEAN CORPUSCULAR HEMOGLOBIN 29.9 pg (27.0-31.0); MEAN CORPUSCULAR HGB CONC 34.1 g/dL (32.0-36.0); MEAN CORPUSCULAR VOLUME 87.6 fL (80.0-94.0); MEAN PLATELET VOLUME 10.5 fL (7.4-11.4); MONOCYTES # (AUTO) 0.7 10^3/uL (0.0-1.0); MONOCYTES % (AUTO) 15.4 %; NEUTROPHILS # (AUTO) 2.7 10^3/uL (1.5-6.6); NEUTROPHILS % (AUTO) 58.7 %; PLT - PLATELET COUNT 175 10^3/uL (130-450); RED BLOOD COUNT 4.82 10^6/uL (4.70-6.10); RED CELL DISTRIBUTION WIDTH 13.2 % (12.0-15.0); WHITE BLOOD COUNT 4.6 x10^3/uL (4.8-10.8)
[2021-09-11 13:14] LABS: % IRON SATURATION 27 % (20-50); IRON 98 ug/dL (45-182); TOTAL IRON BINDING CAPACITY 360 ug/dL (250-450); TRANSFERRIN 257 mg/dL (180-329)
[2021-09-11 13:15] LABS: CRP - C-REACTIVE PROTEIN < 1.0 mg/dL (0-1.0)
== END 2021-09-11 23:59 | disposition home or self-care (01) ==
LOC: LAB.WCP 10:22
PROVIDERS: ATTEND Internal Medicine
DX: K51.90 Ulcerative colitis, unspecified, without complications (principal)
CPT/HCPCS: 36415; 83540; 83993; 84466; 85025; 85651; 86140

== ENCOUNTER 2021-11-19 08:00 | Outpatient (CLI) | payer MEDICAID ==
[2021-11-19 12:04] LABS: BASOPHILS # (AUTO) 0.1 10^3/uL (0.0-0.1); EOSINOPHILS # (AUTO) 0.1 10^3/uL (0.0-0.7); EOSINOPHILS % (AUTO) 1.6 %; HCT - HEMATOCRIT 44.4 % (42.0-52.0); HGB - HEMOGLOBIN 15.5 g/dL (14.0-18.0); LYMPHOCYTES # (AUTO) 1.2 10^3/uL (1.5-3.5); LYMPHOCYTES % (AUTO) 23.2 %; MEAN CORPUSCULAR HEMOGLOBIN 29.9 pg (27.0-31.0); MEAN CORPUSCULAR HGB CONC 34.9 g/dL (32.0-36.0); MEAN CORPUSCULAR VOLUME 85.5 fL (80.0-94.0); MEAN PLATELET VOLUME 10.4 fL (7.4-11.4); MONOCYTES # (AUTO) 0.6 10^3/uL (0.0-1.0); MONOCYTES % (AUTO) 12.5 %; NEUTROPHILS # (AUTO) 3.1 10^3/uL (1.5-6.6); NEUTROPHILS % (AUTO) 61.1 %; PLT - PLATELET COUNT 181 10^3/uL (130-450); RED BLOOD COUNT 5.19 10^6/uL (4.70-6.10); RED CELL DISTRIBUTION WIDTH 12.8 % (12.0-15.0)
[2021-11-19 12:32] LABS: THYROID STIMULATING HORMONE 1.44 uIU/mL (0.34-5.60)
[2021-11-19 12:38] LABS: FERRITIN 26.1 ng/mL (23.9-336.2)
[2021-11-19 12:39] LABS: PROLACTIN 13.42 ng/mL
[2021-11-19 12:51] LABS: % IRON SATURATION 26 % (20-50); ALBUMIN 4.3 g/dL (3.2-5.5); ALBUMIN/GLOBULIN RATIO 1.5 (1.0-2.2); ALKALINE PHOSPHATASE 49 IU/L (42-121); ALT ALANINE AMINOTRANSFERASE 76 IU/L (10-60); AST ASPARTATE AMINOTRANSFERASE 56 IU/L (10-42); BILIRUBIN,TOTAL 1.7 mg/dL (0.2-1.0); BUN - BLOOD UREA NITROGEN 13 mg/dL (6-20); CALCIUM 9.4 mg/dL (8.5-10.3); CARBON DIOXIDE - CO2 27 mmol/L (21-32); CHLORIDE 104 mmol/L (101-111); CHOL/HDL RATIO 3.5 (<5.0); CHOLESTEROL 176 mg/dL; CREATININE 0.9 mg/dL (0.6-1.2); GFR - MDRD 101 (>89); GLUCOSE 88 mg/dL (70-100); HDL CHOLESTEROL 50 mg/dL; IRON 106 ug/dL (45-182); LDL CHOLESTEROL,CALCULATED 116 mg/dL; LDL/HDL RATIO 2.3 (<3.6); POTASSIUM 4.2 mmol/L (3.5-5.0); SODIUM 138 mmol/L (135-145); TOTAL IRON BINDING CAPACITY 413 ug/dL (250-450); TOTAL PROTEIN 7.2 g/dL (6.7-8.2); TRANSFERRIN 295 mg/dL (180-329); TRIGLYCERIDES 51 mg/dL; VLDL CHOLESTEROL 10 mg/dL
[2021-11-19 13:00] LABS: LUTEINIZING HORMONE 4.22 mIU/mL
[2021-11-19 13:09] LABS: ESTIMATED AVERAGE GLUCOSE 82 mg/dL (70-100); HEMOGLOBIN A1c% 4.5 % (4.27-6.07)
[2021-11-19 13:13] LABS: CREATININE,URINE 134.6 mg/dL; MICROALBUM/CREATININE RATIO,UR 2.2 ug/mg (<30.0); MICROALBUMIN,URINE 0.3 mg/dL (0-300.0)
== END 2021-11-19 23:59 | disposition home or self-care (01) ==
LOC: LAB.WCP 08:00
PROVIDERS: ATTEND Internal Medicine
DX: K51.911 Ulcerative colitis, unspecified with rectal bleeding (principal); Z79.899 Other long term (current) drug therapy; F32.A Depression, unspecified
CPT/HCPCS: 36415; 80053; 80061; 82043; 82570; 82728; 83002; 83036; 83540; 83721; 84146; 84403; 84443; 84466; 85025

== ENCOUNTER 2021-12-27 08:00 | Outpatient (CLI) | payer MEDICAID ==
--- NOTE | 2021-12-27 09:01 | Ultrasound Report ---
PROCEDURE: Abdomen Complete INDICATIONS: ELEVATED LIVER FUNCTION TESTS TECHNIQUE: Real-time scanning was performed of the abdominal and retroperitoneal organs, with image documentatio n. COMPARISON: None. FINDINGS: AORTA: The visualized abdominal aorta is normal. IVC: The visualized IVC is normal. LIVER: Normal contour. Mild increased echogenicity. Measures 14.8 cm in length. The portal vein is patent. PANCREAS: The visualized portions of the pancreas are normal. Gallbladder and biliary tree: Within normal limits. The common bile duct measures 2.9 mm. RIGHT KIDNEY: Normal in appearance with no hydronephrosis. Measuring 11.3 cm in length. The renal c ortex thickness measures 1.7 cm. LEFT KIDNEY: Normal in appearance with no hydronephrosis. Measuring 12.7 cm in length. The renal co rtex thickness measures 1.6 cm. Spleen: Normal appearance, measuring 10.8 cm. No evidence for ascites. IMPRESSION: 1.No significant abnormality. Reviewed by: Nathan Keenan MD on 12/27/2021 9:00 AM [facility] Approved by: Nathan Keenan MD on 12/27/2021 9:00 AM [facility] Station ID: [id number]
== END 2021-12-27 08:01 | disposition home or self-care (01) ==
LOC: DI 08:00
PROVIDERS: ATTEND Internal Medicine
DX: R79.89 Other specified abnormal findings of blood chemistry (principal)